=== PATIENT | male | born 1955 | race Caucasian/White ===

== ENCOUNTER 2021-11-17 09:06 | Outpatient (CLI) | payer MEDICARE, BC, SELFPAY ==
--- OUTSIDE RECORDS SUMMARY | 2021-11-17 08:08 | XMS_ITS | Clinical Summary ---
:1955 Author Organization [facility] Address [address] [place] [address] Care Team Providers Name Role Phone Unavailable Primary Care Provider Unavailable Source Comments You are receiving this document as you are listed as the primary care provider,follow-up provider, or the patient has been referred to you for consultation.This is in compliance with the Medicare and Medicaid EHR Incentive Program,which states Providers who transition their patient to another setting of careor provider of care or refers their patient to another provider of care shouldprovide summarycare record for each transition of care or referral. [facility] Allergies Active Allergy Reactions Severity Noted Date Comments Eggs Or Egg-Derived Products Gastrointestinal 03/19/19 20 Latex 03/19/2019 Milk-Related Compounds Gastrointestinal 03/19/2019 Medications Medication Sig Dispensed Refills Start Date End Date Status Probiotic CAPS 0 03/19/2019 Acti ve Magnesium Citrate 200 MG 0 03/19/2019 Active TABS metFORMIN ER (GLUMETZA) Take 1,500 mg 360 Tablet 3 03/19/2019 Active 500 MG modified 24 hour by mouth daily release tablet with breakfast. niacin 500 MG tablet Take 1 Tablet 0 03/19/2019 Active by mouth daily with breakfast. Coenzyme Q10 100 MG 0 03/19/2019 Active losartan (COZAAR) 50 MG Take 100 mg by 90 Tablet 3 03/19/2019 Active tablet mouth daily. clonazePAM (KLONOPIN) 1 Take 1 Tablet 0 03/19/2019 Active MG tablet by mouth two times daily as needed for Anxiety. levothyroxine Take 1 Tablet 90 Tablet 3 03/19/2019 A ctive (SYNTHROID) 150 MCG by mouth daily. tablet cholecalciferol (VITAMIN Taking 2,000 100 Tablet 3 03/19/2019 Active D3) 25 MCG (1000 UT) Unit OR DAILY, tablet CAP cyanocobalamin (VITAMIN Take 1 Tablet 0 03/19/2019 Active B12) 1000 MCG tablet by mouth daily. aspirin 81 MG chewable Take 1 Tablet 100 Tablet 3 03/19/2019 Active tablet by mouth daily. celecoxib (CELEBREX) 200 Take 1 Capsule 60 Capsule 5 0 Active MG capsuleIndications: by mouth two Primary osteoarthritis times daily as involving multiple needed for joints Pain. diclofenac (VOLTAREN) 1 Apply 4 g to 300 g 11 04/14/2019 Active % gelIndications: skin 4 times a Primary osteoarthritis day. involving multiple joints, Chronic bilateral low back pain without sciatica, Chronic pain of both knees, Primary osteoarthritis of both knees Active Problems Problem Noted Date RIYA (obstructive sleep apnea) 04/14/2019 Acquired hypothyroidism 04/14/2019 GERD (gastroesophageal reflux disease) 04/14/2019 HTN (hypertension) 04/14/2019 Social History Tobacco Use Types Packs/Day Years Used Date Smoking Tobacco: Former Smokeless Tobacco: Never Alcohol Use Standard Drinks/Week Comments Not Currently 0 (1 standard drink = 0.6 oz pure alcoho l) Sex Assigned at Date Recorded Not on file Last Filed Vital Signs Vital Sign Reading Time Taken Comments Blood Pressure 145/82 04/14/2019 10:08 AM 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 Pulse 87 04/14/2019 10:08 AM 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 Temperature - - Respiratory Rate - - Oxygen Saturation - - Inhaled Oxygen Concentration - - Weight 128.2 kg (282 lb 9.6 oz) 04/14/2019 10:08 AM 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 Height 180.3 cm (5' 11) 04/14/2019 10:08 AM 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 Body Mass Index 39.41 04/14/2019 10:08 AM 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 Plan of Treatment Health Maintenance Due Date Last Done Comments Colon Cancer Screening Plan 1955 Due Hep C Screening (Preventive 1955 Services) Medicare Annual Wellness 1955 Visit COVID-19 Vaccine (#1) 1955 Cholesterol 02/05/1988 Zoster/Shingles (1 of 2) 2003 Pneumococcal 65+ Yrs (2 - 10/20/2020 10/21/2019 PCV) Influenza (#1) 2021 12/18/2019, 11/05/2019, 01/17/2011, Additional history exists DTaP/Tdap/Td (2 - Tdap) 06/12/2023 06/11/2013 HepA Aged Out No longer cathy lopez based on patient 's age to complete this topic HepB Aged Out No longer eligib le based on patient 's age to complete this topic Hib Aged Out No longer eligib le based on patient 's age to complete this topic IPV (Polio) Aged Out No longer eligib le based on patient 's age to complete this topic MCV4 Aged Out No longer eligib le based on patient 's age to complete this topic Insurance Payer Benefit Plan / Subscriber ID Effective Dates Phone Addre ss Type Group MEDICARE MEDICARE [id number] 2018-Prese [phone] [facility] BCBS BCBS BCBS [place] [id number] 2019-Presen [phone] [address] [address] Medicare BLUE [address] [place] [address] (Home) [place] [address]
[2021-11-17 10:04] LABS: Chloride* 103 mmol/L (96-114)
[2021-11-17 10:05] LABS: Albumin* 4.8 g/dL (3.3-5.0); Sodium* 138 mmol/L (135-149)
[2021-11-17 10:06] LABS: Potassium* 4.8 mmol/L (3.6-5.1)
[2021-11-17 10:08] LABS: Alanine Aminotransferase* 27 U/L (4-50); Alkaline Phosphatase* 80 U/L (40-150); Aspartate Amino Transferase* 30 U/L (12-35); Bilirubin Total* 0.4 mg/dL (0.1-1.5); Blood Urea Nitrogen* 18 mg/dL (7-30); Carbon Dioxide* 26 mmol/L (20-32); Cholesterol* 190 mg/dL (90-199); Creatinine* 0.8 mg/dL (0.5-1.5); Estimated Glomerular Filt Rate 96 ml/min; Glucose* 107 mg/dL (60-115); Total Protein* 7.6 g/dL (6.0-8.3); Triglycerides* 92 mg/dL (40-149)
[2021-11-17 10:09] LABS: Calcium* 9.5 mg/dL (8.4-10.6); HDL Cholesterol* 55 mg/dL (>=40); LDL Cholesterol Calculated 117 mg/dL (<100)
[2021-11-18 10:51] LABS: PSA Screen* 2.74 ng/mL (0.10-4.00)
[2021-11-18 10:54] LABS: Ferritin* 58.2 ng/mL (17.9-464.0)
== END 2021-11-17 09:07 | disposition home or self-care (01) ==
PROVIDERS: PCP Family Medicine; Visit Provider Family Medicine
DX: Z00.00 Encounter for general adult medical examination without abnormal findings (principal); E78.5 Hyperlipidemia, unspecified; I10 Essential (primary) hypertension; E03.9 Hypothyroidism, unspecified; R53.83 Other fatigue; E66.9 Obesity, unspecified; Z13.0 Encounter for screening for diseases of the blood and blood-forming organs and certain disorders involving the immune mechanism; G25.81 Restless legs syndrome; Z12.5 Encounter for screening for malignant neoplasm of prostate
CPT/HCPCS: 80053; 80061; 82728; 84153

== ENCOUNTER 2022-10-02 09:28 | Outpatient (CLI) | payer MEDICARE, BC, SELFPAY | END 2022-10-02 09:29 | disposition home or self-care (01) | LOC: NFLDREF 10-04 16:38 | PROVIDERS: PCP Family Medicine; Visit Provider Family Medicine | DX: E03.9 Hypothyroidism, unspecified (principal); I10 Essential (primary) hypertension | CPT/HCPCS: 80053; 84443 ==

== ENCOUNTER 2022-11-22 10:55 | Outpatient (CLI) | payer MEDICARE, BC, SELFPAY | END 2022-11-22 10:56 | disposition home or self-care (01) | LOC: NFLDREF 11-24 11:59 | PROVIDERS: PCP Family Medicine; Referring Provider Family Medicine; Visit Provider Otolaryngology | DX: J32.9 Chronic sinusitis, unspecified (principal); Z12.5 Encounter for screening for malignant neoplasm of prostate; G25.81 Restless legs syndrome; E66.01 Morbid (severe) obesity due to excess calories; I10 Essential (primary) hypertension; R53.83 Other fatigue; E78.5 Hyperlipidemia, unspecified; E03.9 Hypothyroidism, unspecified | CPT/HCPCS: 80053; 80061; 82728; 84153 ==

== ENCOUNTER 2022-12-13 09:49 | Outpatient (CLI) | payer MEDICARE, BC, SELFPAY ==
--- NOTE | 2022-12-13 10:00 | CRLHL7_ITS ---
For Patients: As a result of the Cures Act, medical imaging exams and procedure reports are released immediately into your electronic medical record. You may view this report before your referring provider. If you have questions, please contact your health care provider. Indication: Chronic sinusitis Technique: Performed without IV contrast Comparison: None available Findings: Frontal sinuses: Mild mucosal thickening within the frontal sinuses bilaterally particularly inferiorly. Ethmoid sinuses: Mild mucosal thickening within the ethmoid sinuses bilaterally. Maxillary sinuses: The left maxillary sinus is clear. Chronic inflammatory changes within the inferior right maxillary sinus with mucosal thickening and heterotopic calcification, likely related to implanted denture screw. The sinus drainage pathways are clear bilaterally. Sphenoid sinuses: Mucosal thickening is present within both maxillary sinuses along with anterior mucus within the right sphenoid sinus. The sphenoethmoidal recesses are partially obstructed. Nasal Cavity: Rightward curvature of the nasal septum is present with an associated right-sided nasal septal spur. Nodularity of the turbinate mucosa. Marleny bullosa right middle turbinate. Paradoxical turn of the right middle turbinate noted as well. Incidental hyperostosis frontalis interna noted. Middle ear cavities and mastoid air cells are clear. Mild cerumen present within both external auditory canals. Normal alignment at the temporomandibular joints bilaterally. No intracranial hydrocephalus. Impression: 1. Mild bilateral sinus disease with relative sparing of the left maxillary sinus. Partial obstruction of the sphenoid ethmoidal recesses bilaterally. 2. Chronic inflammatory change involving the inferior right maxillary sinus, likely associated with implanted dentures screw. 3. Rightward curvature of the nasal septum noted with right-sided nasal septal spur. Please note that all CT scans at this facility use dose modulation, iterative reconstruction, and/or weight-based dosing when appropriate to reduce radiation dose to as low as reasonably achievable. Dictated by Anthony Pineda MD @ 12/14/2022 8:51:11 AM (Electronically Signed)
== END 2022-12-13 09:50 | disposition home or self-care (01) ==
LOC: CT 09:49
PROVIDERS: PCP Family Medicine; Visit Provider Otolaryngology
DX: J32.9 Chronic sinusitis, unspecified (principal); J32.0 Chronic maxillary sinusitis; J34.2 Deviated nasal septum
CPT/HCPCS: 70486

== ENCOUNTER 2023-02-12 11:28 | Outpatient (CLI) | payer MEDICARE, BC, SELFPAY | END 2023-02-12 11:29 | disposition home or self-care (01) | LOC: NFLDREF 02-13 12:23 | PROVIDERS: PCP Family Medicine; Referring Provider Family Medicine; Visit Provider Family Medicine | DX: E78.5 Hyperlipidemia, unspecified (principal) | CPT/HCPCS: 80061 ==

== ENCOUNTER 2023-02-23 09:49 | Day surgery (SDC) | payer MEDICARE, BC, SELFPAY ==
[2023-02-23] VITALS (16 sets, daily range): BP systolic 156–183; BP diastolic 75–105; PULSE 71–98; RESP 16–20; TEMP 36.1–37.3; O2SAT 71–98; BMI 42.9
[2023-02-23] MEDS: LACTATED RINGERS 1000 ML 1,000 ML 35 ML IV (10:32)
[2023-02-23] MEDS: OXYMETAZOLINE 0.05% NASAL SPRAY 2 SPRAY NOSTRIL-B (10:39)
[2023-02-23] MEDS: COCAINE HCL 4 % 4 ML SOLUTION NOSTRIL-B (12:03)
[2023-02-23] MEDS: BUPIVACAINE 0.5%/EPINEPHRINE 0.9 MG (30.9 ML) INJECTION (12:06)
[2023-02-23] MEDS: AYR SALINE NASAL GEL 1 APPLIC NOSTRIL-B (12:13)
--- NOTE | 2023-02-23 12:30 | W.PM.ENTPROC ---
Procedure Note Date of procedure: 02/23/23 Procedure: Preoperative diagnosis chronic bilateral ethmoid sinusitis, nasal obstruction, deviated septum, inferior turbinate hypertrophy bilateral, right middle turbinate kena bullosa. Postoperative diagnosis same Procedure nasal septoplasty, submucous partial resection inferior turbinates, endoscopic partial resection right middle turbinate kena bullosa, endoscopic bilateral complete ethmoidectomies Under general trach anesthesia patient was prepped draped usual fashion the nose injected and decongested. A right hemitransfixion incision was made left anterior posterior tunnels were created. A right anterior tunnel was also created. The posterior deflected portions of septal bone resected in a single piece was trimmed and returned to intraseptal space. The anterior septum was moved to midline. The hemitransfixion was closed with 2 4-0 chromic sutures. A stab incision was made in the anterior of the right inferior turbinate a tunnel created with a Desiree dissector. The kena bone was outfractured a conservative anterior submucous resection was performed. The Coblation was used to cauterize intramurally more posteriorly. This was repeated on the left side in identical fashion. The meter procedure was done with both image guidance and utilization of 0 degree endoscopy. The right middle turbinate kena was incised over the hollow portion of the bone. The bone was then infection the turbinate crushed with the [place] forceps. The ethmoid bulla was taken down and dissection carried out in an anterior to posterior direction removing a moderate amount of polypoid tissue. The left middle turbinate was medialized and the ethmoid bulla taken down and dissection carried out anterior to posterior direction again removing a moderate amount of polypoid material. All specimens were sent to pathology. Silastic stents were secured on either side the septum with a 3-0 nylon. A dissolvable gel pack was placed in the anterior ethmoid on each side with Merocel pack beneath that. Nasal airways were then trimmed inset and placed in the floor of the nose. The patient procedure well was taken recovery in satisfactory condition blood loss during procedure was less than 50 mL. Surgeon: Vinh Rodriguez MD
--- NOTE | 2023-02-23 12:48 | W.ANESCHARGE ---
Anesthesia Charges Start Date/Time Anesthesia Start Date: 02/23/23 Anesthesia Start Time: 11:40 Stop Date/Time Anesthesia Stop Date: 02/23/23 Anesthesia Stop Time: 12:43 Summary Extremes of Age - Over 70 or under 1: MDA
[2023-02-23] MEDS: HYDROmorphone 0.5 mg/0.5 ml inj IVP (12:50)
[2023-02-23] MEDS: fentaNYL 100 MCG/2 ML inj 50 MCG IVP (12:59)
--- NOTE | 2023-02-23 13:11 | W.ANESCHARGE ---
Anesthesia Charges Start Date/Time Anesthesia Start Date: 02/23/23 Anesthesia Start Time: 11:40 Stop Date/Time Anesthesia Stop Date: 02/23/23 Anesthesia Stop Time: 12:43
[2023-02-23] MEDS: AMLODIPINE 10 MG TABLET PO (14:12)
[2023-02-23] MEDS: ACETAMINOPHEN 325 MG TABLET PO ×2 (14:12→19:31)
[2023-02-23] MEDS: OXYCODONE 5 MG TABLET PO ×4 (14:13→23:55)
[2023-02-23] MEDS: LOSARTAN POTASSIUM 50 MG TABLET 100 MG PO (14:30)
--- NOTE | 2023-02-23 15:27 | PC.NURSE ---
patient up to floor at 1320. alert and oriented x4. minimal drainage on gauze. changed x1. Patient able to use saline nasal spray Q hr per O'Alexander independently. Ice pack to forehead. at bedside. PRN oxy and tylenol administered w/relief. Patient up to BR and voided, fluids are saline locked.
--- NOTE | 2023-02-23 15:29 | P.IMCN_ITS ---
Date of Consult Patient: [facility] Patient Consult date: 02/23/23 Requesting Physician: Other Primary Care Provider: Patricia Moffett MD Consult Narrative Reason for consult: Management of hypertension, sleep apnea and other medical problems Narrative: Eveline Shrestha is a 68 year old male seen in consultation for management of medical problems following surgery for chronic sinusitis and deviated nasal septum. Patient currently reports some nasal pain but otherwise doing well postoperatively. Reports no trouble breathing, no chest pain or other pain, nausea or vomiting. Intraoperatively patient had very high blood pressure. He did not take his normal blood pressure medicine today preoperatively. He reports his blood pressure at home is normally well controlled with systolics in the 130s. Review of Systems Narrative: He reports he has had chronic headaches which are due to a combination of migraine headaches, sinus headaches, TMJ pain. He does not regularly take pain medicine at home except for Pamprin. He also has restless legs for which he takes clonazepam at bedtime. He reports his sleep is very poor due to combination of factors. He reports he is up to void at night multiple times. Has never had an evaluation for this. He has sleep apnea for which he uses CPAP but cannot currently use CPAP after his nasal surgery. [facility] Medical History Hypertension ?I10 - Essential (primary) hypertension (ICD-10) Agatston coronary artery calcium score greater than 400 (2017) ?R93.1 - Abnormal findings on diagnostic imaging of heart and coronary circulation (ICD-10) Obesity with body mass index (BMI) of 30.0 to 39.9 ?E66.9 - Obesity, unspecified (ICD-10) Morbid obesity with BMI of 40.0-44.9, adult ?E66.01 - Morbid (severe) obesity due to excess calories (ICD-10) ?Z68.41 - Body mass index [BMI] 40.0-44.9, adult (ICD-10) Obstructive sleep apnea treated with continuous positive airway pressure (CPAP) ?G47.33 - Obstructive sleep apnea (adult) (pediatric) (ICD-10) ?Z99.89 - Dependence on other enabling machines and devices (ICD-10) Tubular adenoma (09/27/17) ?D36.9 - Benign neoplasm, unspecified site (ICD-10) History of renal calculi (09/2019) ?Z87.442 - Personal history of urinary calculi (ICD-10) Enlarged prostate ?N40.0 - Benign prostatic hyperplasia without lower urinary tract symptoms (ICD-10) Diverticulitis ?K57.92 - Diverticulitis of intestine, part unspecified, without perforation or abscess without bleeding (ICD-10) Surgical History History of oral surgery (1972) ?Z98.890 - Other specified postprocedural states (ICD-10) History of lithotripsy (09/15/19) ?Z98.890 - Other specified postprocedural states (ICD-10) History of esophagogastroduodenoscopy (EGD) (03/2020) ?Z98.890 - Other specified postprocedural states (ICD-10) History of endoscopy ?Z98.890 - Other specified postprocedural states (ICD-10) History of colonoscopy (09/27/17) ?Z98.890 - Other specified postprocedural states (ICD-10) Family History Mother Bladder cancer, Onset Age: 84 Rheumatoid arthritis Osteoarthritis Brother Heart disease Father Heart disease Other Obesity Social History (Updated 02/23/23 @ 15:39 by Sonido Gama MD) 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 social drinker 1/week walking 3 times 3 Miles on treadmill Occasionally uses CBD gummies which he finds beneficial for pain What is your current living situation?: I presently have a place to live Problems where you live: no known problems In the past 12 months, utilities in danger of being shut off: no In past 12 months, lack of transportation kept you from medical appts, meetings, work, or getting things needed for daily living: no In the past 12 mos, have been you worried that your food would run out before you had money to buy more?: never true In the past 12 mos, the food you bought just didn't last and you didn't have money to buy more?: never true Smoking Status: Former smoker How often does anyone, including family, friends and others, physically hurt you : never How often does anyone, including family, friends and others, insult or talk down to you: never How often does anyone, including family, friends and others, threaten you with harm: never How often does anyone, including family, friends and others, scream or curse at you: never Little interest or pleasure in doing things: not at all Feeling down, depressed, or hopeless: not at all Meds Home Medications and Allergies Home Medications Medication Instructions Recorded Confirmed Type fluticasone propionate 50 1 spray intranasal BID PRN 10/06/22 02/14/23 History mcg/actuation nasal spray,suspension (Flonase Allergy Relief) Allergies Allergy/AdvReac Type Severity Reaction Status Date / Time Eggs or Egg-derived Products Allergy Intermediate Gastrointestinal Uncoded 02/14/23 08:56 Upset Milk derivatives Allergy Intermediate Gastrointestinal Uncoded 02/14/23 08:56 Upset Latex Allergy Mild rash Uncoded 02/14/23 08:56 Exam Narrative: Exam Narrative: He is alert sitting up in a chair and appears in no distress. Nose is bandaged with small amount of blood on the dressing. No marked swelling, erythema or bruising. Oropharynx normal. Neck is supple without mass or adenopathy. Respirations are clear to auscultation. Cardiovascular: S1, S2, 1/6 systolic murmur. No gallop or rub. Extremities without significant edema. Const: Vital Signs, click to edit/add: Vital Signs - 24 hr 02/23/23 10:14 02/23/23 12:38 02/23/23 12:45 Temperature 99.1 F 97.0 F L Pulse Rate 81 80 75 Pulse Rate [Right Pulse Oximeter] Respiratory Rate 16 18 18 Blood Pressure 171/86 H 183/103 H 177/86 H Blood Pressure [Le ft Arm] Pulse Oximetry 95 92 74 L Oxygen Delivery Me thod Room Air Room Air Room Air 02/23/23 12:51 02/23/23 12:55 02/23/23 13:00 Temperature 97.0 F L Pulse Rate 75 73 71 Pulse Rate [Right Pulse Oximeter] Respiratory Rate 20 20 18 Blood Pressure 156/90 H 169/85 H 170/87 H Blood Pressure [Le ft Arm] Pulse Oximetry 74 L 71 L 71 L Oxygen Delivery Me thod Room Air Room Air Room Air 02/23/23 13:06 02/23/23 13:11 02/23/23 13:14 Temperature Pulse Rate 74 73 72 Pulse Rate [Right Pulse Oximeter] Respiratory Rate 18 20 18 Blood Pressure 164/83 H 163/87 H 167/85 H Blood Pressure [Le ft Arm] Pulse Oximetry 96 96 98 Oxygen Delivery Me thod Room Air Room Air Room Air 02/23/23 13:30 02/23/23 13:45 02/23/23 14:00 Temperature 97.0 F L 97.4 F L 97.4 F L Pulse Rate Pulse Rate [Right Pulse Oximeter] 81 76 87 Respiratory Rate 18 18 18 Blood Pressure Blood Pressure [Le ft Arm] 170/81 H 172/84 H 181/88 H Pulse Oximetry 94 95 96 Oxygen Delivery Me thod Room Air Room Air Room Air 02/23/23 14:15 02/23/23 14:56 Temperature 97.6 F 97.0 F L Pulse Rate 78 Pulse Rate [Right Pulse Oximeter] 86 Respiratory Rate 18 18 Blood Pressure Blood Pressure [Le ft Arm] 177/83 H 176/105 H Pulse Oximetry 97 Oxygen Delivery Me thod Room Air Room Air Documenting provider has reviewed patient's vital signs: yes Assessment and Plan Assessment and plan (1) Hypertension: Problem comment: Elevated blood pressure during surgery likely due to a combination of surgical affects and missing his blood pressure medicine this morning. Resume home medicines. Likely blood pressure will return Status: Chronic (2) Chronic sinusitis: Problem comment: Status post nasal surgery Status: Chronic (3) Obstructive sleep apnea treated with continuous positive airway pressure (CPAP): Problem comment: Unable to use CPAP postoperatively due to nasal surgery. Caution with opioids Status: Acute (4) Morbid obesity with BMI of 40.0-44.9, adult: Status: Chronic (5) Hypothyroidism: Problem comment: Resume levothyroxine Status: Chronic Plan Patient is observed in the hospital overnight to assess his vital signs, blood pressure, breathing. Anticipate discharge to home tomorrow if tolerating his postoperative state with reasonable vital signs, adequate respiration and pain control Total time spent today is 40 minutes, 25 minutes in coordination of care and discussing with patient and other providers management of postoperative problems
[2023-02-23] MEDS: IBUPROFEN 200 MG TABLET PO ×2 (17:33→22:58)
--- NOTE | 2023-02-23 19:59 | PC.NURSE ---
Elevated BP- 160s/80s, HR- high 90s. RA. Pain of 3-4- some relief w/ q4h tylenol, ibuprofen, and q2h 5 mg oxy + ice. Using saline spray q1h. Bloody drainage from right nare, quarter size q2h. Tolerating regular diet. Drinking well- 1600 cc fluids in. Voided x5. Up independently in room. PIV in left FA- SL'd. Will continue to monitor, follow POC, and keep pt and family updated. Cristela Wesley RN
[2023-02-24] MEDS: clonazePAM 0.5 MG TABLET 1 MG PO (02:30)
[2023-02-24 02:40] VITALS: BP 170/79; PULSE 75; RESP 18; TEMP 36.4; O2SAT 97
[2023-02-24] MEDS: ACETAMINOPHEN 325 MG TABLET PO ×2 (03:15→08:45)
[2023-02-24] MEDS: OXYCODONE 5 MG TABLET PO ×2 (03:16→08:46)
--- NOTE | 2023-02-24 06:21 | PC.NURSE ---
Patient pleasant, alert and cooperative. Independent in room. Given PRN Oxycodone, PRN Tylenol and PRN ibuprofen for nose pain rated 3-4/10. PRN Klonpin given for sleep. No increase in bloody nasal drainage from start of shift. Reports increased bleeding after using nasal spray. Blood pressures have remained elevated between 159/70 to 170/79; all other VS WNL. ?
[2023-02-24 07:30] VITALS: BP 143/67; PULSE 59; RESP 18; TEMP 36.6; O2SAT 98
[2023-02-24] MEDS: LEVOTHYROXINE 75 MCG TABLET 150 MCG PO (08:45)
[2023-02-24] MEDS: LOSARTAN POTASSIUM 50 MG TABLET 100 MG PO (08:45)
[2023-02-24] MEDS: SODIUM CHLORIDE 0.9 % (FLUSH) 10 ML SYRINGE IVF (08:47)
--- NOTE | 2023-02-24 11:17 | PC.NURSE ---
Please see eMar for meds provided. Eval by Dr. Gama who updated & conferred with Dr. Rodriguez via phone. IV discontinued. D/C orders obtained. Pt and Shanita verbalized understanding of d/c diagnosis, new prescriptions, home meds, f/up appt with Dr. Rodriguez and sx to report urgently to physician. Ambulatory d/c to home with personal belongings and as transportation.
--- NOTE | 2023-02-24 11:21 | PC.NURSE ---
Pt had 520 cc in and voided times 3 prior to d/c this am.
--- NOTE | 2023-02-24 11:33 | PM.DS1 ---
DS: Providers Provider Date Seen: 02/24/23 Primary care physician: Patricia Moffett MD Attending Physician on discharge: Vinh Rodriguez MD Date of Discharge: 02/24/23 DS: Diagnosis Discharge Diagnosis (1) Hypertension: Status: Chronic Problem details: Elevated blood pressure during surgery likely due to a combination of surgical affects and missing his blood pressure medicine this morning. Resume home medicines. Continue outpatient home monitoring of blood pressure and follow-up with primary care if blood pressure is elevated (2) Chronic sinusitis: Status: Chronic Problem details: Status post nasal surgery. Doing well with multiple concerns about managing postoperative symptoms (3) Obstructive sleep apnea treated with continuous positive airway pressure (CPAP): Status: Acute Problem details: Postoperative monitoring showed no hypoxia overnight without CPAP. Caution with opioids. Patient will resume full face mask CPAP. (4) Restless legs syndrome: Status: Acute Problem details: gabapentin 100 mg, in addition clonazepam 1 mg. Continue home management. DS: Summary Hospital Course Hospital Course: 68-year-old male with chronic sinus problems admitted to the hospital for sinus surgery. Surgery performed by Dr. Rodriguez without complications. Intraoperatively patient had problems with elevated blood pressure. Postoperatively he has had some issues with pain control but this is been managed effectively with oxycodone. Postoperatively he had his blood pressure medicines resumed and his blood pressure has returned to near normal levels. He did not sleep well the night after surgery due to not having CPAP, restless legs, pain in his sinuses. He has had some mild bleeding coming from his nostrils. He continues to use the saline to irrigate his nasal tubes. Status at Discharge Functional status at discharge: independent ambulation Overall status at discharge: patient is progressing back to baseline Time Spent with Patient Time attestation: Total time spent providing and/or coordinating discharge services: Time spent: Greater than 30 minutes Exam Narrative: Exam Narrative: He is alert and appears in no distress. He has small amount of bright red blood drainage on the dressing over his nostrils. No active bleeding is observed from the anterior nostrils. Oropharynx with very small airway. Neck is supple without mass or adenopathy. Respirations are clear to auscultation. Cardiovascular: S1, S2, regular rate and rhythm. Const: Vital Signs, click to edit/add: Vital Signs - 24 hr 02/23/23 12:38 02/23/23 12:45 02/23/23 12:51 Temperature 97.0 F L Pulse Rate 80 75 75 Pulse Rate [Left A pical] Pulse Rate [Right Pulse Oximeter] Respiratory Rate 18 18 20 Blood Pressure 183/103 H 177/86 H 156/90 H Blood Pressure [Le ft Arm] Pulse Oximetry 92 74 L 74 L Oxygen Delivery Me thod Room Air Room Air Room Air 02/23/23 12:55 02/23/23 13:00 02/23/23 13:06 Temperature 97.0 F L Pulse Rate 73 71 74 Pulse Rate [Left A pical] Pulse Rate [Right Pulse Oximeter] Respiratory Rate 20 18 18 Blood Pressure 169/85 H 170/87 H 164/83 H Blood Pressure [Le ft Arm] Pulse Oximetry 71 L 71 L 96 Oxygen Delivery Me thod Room Air Room Air Room Air 02/23/23 13:11 02/23/23 13:14 02/23/23 13:30 Temperature 97.0 F L Pulse Rate 73 72 Pulse Rate [Left A pical] Pulse Rate [Right Pulse Oximeter] 81 Respiratory Rate 20 18 18 Blood Pressure 163/87 H 167/85 H Blood Pressure [Le ft Arm] 170/81 H Pulse Oximetry 96 98 94 Oxygen Delivery Mo thod Room Air Room Air Room Air 02/23/23 13:45 02/23/23 14:00 02/23/23 14:15 Temperature 97.4 F L 97.4 F L 97.6 F Pulse Rate Pulse Rate [Left A pical] Pulse Rate [Right Pulse Oximeter] 76 87 86 Respiratory Rate 18 18 18 Blood Pressure Blood Pressure [Le ft Arm] 172/84 H 181/88 H 177/83 H Pulse Oximetry 95 96 97 Oxygen Delivery Me thod Room Air Room Air Room Air 02/23/23 14:56 02/23/23 19:00 02/23/23 22:00 Temperature 97.0 F L 97.5 F L 96.9 F L Pulse Rate 78 Pulse Rate [Left A pical] Pulse Rate [Right Pulse Oximeter] 96 98 Respiratory Rate 18 16 20 Blood Pressure Blood Pressure [Le ft Arm] 176/105 H 159/75 H 177/86 H Pulse Oximetry 95 94 Oxygen Delivery Me thod Room Air Room Air Room Air 02/24/23 02:40 02/24/23 07:30 Temperature 97.6 F 97.9 F Pulse Rate Pulse Rate [Left A pical] 59 L Pulse Rate [Right Pulse Oximeter] 75 59 L Respiratory Rate 18 18 Blood Pressure Blood Pressure [Le ft Arm] 170/79 H 143/67 H Pulse Oximetry 97 98 Oxygen Delivery Me thod Room Air Documenting provider has reviewed patient's vital signs: yes Discharge Plan Discharge Disposition: Home, Self-Care Discharging Surgeon: Vinh Rodriguez Follow-Up Appointment: Tuesday 02/27 9:15am [facility] Prescriptions: New cephalexin 250 mg capsule 250 mg PO TID Qty: 18 0RF ondansetron 4 mg tablet,disintegrating 4 mg PO Q8H Qty: 10 0RF oxycodone 5 mg tablet 2.5 mg PO Q4H PRN (Reason: pain) Qty: 30 0RF Continued levothyroxine 150 mcg tablet 150 mcg PO DAILY Qty: 90 4RF fluticasone propionate [Flonase Allergy Relief] 50 mcg/actuation spray,suspension 1 spray intranasal BID PRN Rx Instructions: administer into each nostril amlodipine 10 mg tablet 10 mg PO QDAY Qty: 90 3RF losartan 100 mg tablet 100 mg PO DAILY Qty: 90 4RF clonazepam 1 mg tablet 1 mg PO HS PRN Discharge Diet: Regular Patient Instructions: Cephalexin (By mouth), Oxycodone, Rapid Release (By mouth), Ondansetron (By mouth), Septoplasty (DC), Care Instructions For Nose and Sinus Surgery Patients Forms: Work/School Release Follow-up: Patricia Moffett MD [Primary Care Provider] - Vinh Rodriguez MD [Staff Physician] - 02/27/23 9:15 am Discharge Orders: Discharge Order (Routine); Ordered 02/24/23 Ordered By: Sonido Gama
== END 2023-02-24 10:25 | disposition home or self-care (01) ==
LOC: OR 09:50 → MEDSURG 13:24
PROVIDERS: PCP Family Medicine; Visit Provider Otolaryngology
PROC: (CPT 31231; principal; 2023-02-23 11:15)
DX: J32.2 Chronic ethmoidal sinusitis (principal); J34.2 Deviated nasal septum; J34.3 Hypertrophy of nasal turbinates; J34.89 Other specified disorders of nose and nasal sinuses; I10 Essential (primary) hypertension; G47.33 Obstructive sleep apnea (adult) (pediatric); E66.01 Morbid (severe) obesity due to excess calories; Z68.41 Body mass index [BMI] 40.0-44.9, adult; E03.9 Hypothyroidism, unspecified; G25.81 Restless legs syndrome
CPT/HCPCS: 30520; 30140; 31255; 30999; 00160; 88305; 99100; A9270; J0330; J1100; J1170; J2250; J2405; J2704; J3010; J7120

== ENCOUNTER 2023-11-02 10:15 | Outpatient (RCR) | payer MEDICARE, BC, SELFPAY ==
--- NOTE | 2023-09-20 16:06 | PT.OPEX ---
PT [facility] Outpatient Eval PT [facility] Outpatient Eval Start: 09/20/23 12:00 Freq: Status: Active Protocol: Document 09/20/23 12:32 NLR (Rec: 09/20/23 15:34 NLR [id number]) E-signed By Alejandrina Olivas DPT Physical Therapy Outpatient Evaluation Insurance Information Recert Due Date 12/19/23 Insurance Name Medicare B,Blue Cross/Blue Shield Medical Diagnosis M54.50 LBP Treating Diagnosis M54.50 LBP M62.81 Weakness core Referring MD Vesna Moffett MD Subjective Preferred Name COLTON Subjective Patient reports for PT evaluation with acute on chronic back pain stating he has a weak core and doesn't really exercise so he tends to have tight muscles. He grabbed a bunch of groceries in his right hand about three weeks ago, turned and had a sudden onset of right upper iliac crest pain. His MD gave him Voltaren and Flexeril. Both helped with muscle spasms and pain improved. He wants to have an exercise program to improve his flexibility and core strength. Pain Comments 2-3/10 today, has been up to 6 /10 a few weeks ago. He is in the process of losing weight (40 pounds on Ozempic) and he wants to be able to do an exercise program so he doesn't hurt his back worse. His goal is to ride a bike and to be able to do other activities. He has an elliptical in his basement. He may try [employer] with his [employer] but he states he needs direction to do the right things and not to overdo the wrong things. 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 Lives with his spouse in a house with multi levels, bedroom and bathroom are on main level. Has a bike and enjoys riding it but hasn't much. Precautions Therapy Limitations/Systems Review Not Limited Objective Other/Pertinent Objective HAND DOM: RIGHT ROM: Grossly WFL except lumbar flexion 20, extension neutral. STRENGTH: Grossly WFL except core strength quite poor. POSTURE: R shoulder low and retracted, FHON, L LE ER, mild L high PSIS, L>R pronation FLEXIBILITY: Hypoflexibility noted QL, HS, QDs, HFs, HCs FOOTWEAR: New Balance athletic shoes Assessment Assessment/Impression Patient is a pleasant 68 year old male who recently lost 40 pounds who presents for PT with acute on chronic LBP in the setting of poor core strength and general hypoflexibility. He would benefit from PT for goals as stated to improve core strength and flexibility to minimize recurrence of LBP. Primary Functional Limitations Difficulty participating in regular exercise program due to weakness and hypoflexibility with high risk for continued low back pain. Plan of Care Rehabilitation Potential Good Rehabilitation Potential Comments Patient is otherwise healthy and motivated to improve in order to return to prior level of function. Physical Therapy Goals 1. Patient will be independent with home exercise program as instructed, modified and progressed by physical therapist in order to be independently and actively participating in their rehabilitation and return to prior level of function. Goal to be achieved by 12/19/2023. 2. Patient will demonstrate improved tolerance for movement with decreased pain and joint restriction to allow him to return to pre-injury fitness activities of choice such as biking, walking without significant increase in pain greater than 2/10 demonstrating improvement in form and/or mechanics to allow patient to return to pre- onset level of function. Goal to be achieved by 12/19/2023. Coordination/Communication With Referral Source Treatment Plan/Direct Interventions Gait Training,Manual Therapy, Neuromuscular Re-ed, Therapeutic Exercises Frequency/Duration 1X every other week for up to 10 visits Patient Will Be Discharged From Therapy Completion of LTG(s),Skills Plateau,Independent w/HEP, Independently Progressing Evaluation Billing Untimed Code Treatment Minutes 20 PT Eval No Charge No Complexity Low Certification Information Provider Signature Required Yes Provider Signature Shows Agreement With POC & Medical Necessity Physician NPI Number Write NPI# Here Physician Comment/Change : Physician Signature & Date Requested Please Sign/Date Here
== END 2024-01-03 15:32 | disposition home or self-care (01) ==
PROVIDERS: PCP Family Medicine; Visit Provider Family Medicine
DX: M54.50 Low back pain, unspecified (principal); M47.816 Spondylosis without myelopathy or radiculopathy, lumbar region; M62.81 Muscle weakness (generalized); Z51.89 Encounter for other specified aftercare
CPT/HCPCS: 97110; 97112; 97161; 97535

== ENCOUNTER 2023-12-19 11:04 | Outpatient (CLI) | payer MEDICARE, BC, SELFPAY ==
--- OUTSIDE RECORDS SUMMARY | 2023-12-19 14:59 | XMS_ITS | Clinical Summary ---
Author Organization [facility] Address [address] [place] [id number] Care Team Providers Care Wet Cleaner Machine Name Role Phone Elsewhere, Pcp Primary Care Provider Unavailabl e Source Comments Patient records contain information from all sites at [facility]. For routine questions regarding patient records, call [phone] during business hours, M-F 8:00 AM - 5:00 PM Central Time. Record requests for emergency care only can be directed to [phone] at any time.[facility] Allergies No known active allergies Medications clonazePAM (for_KlonoPIN) 0.5 mg tablet Take 2 tablets (1 mg total) by mouth at bedtime. 60 tablet 2 8 Active levothyroxine (for_SYNTHROID, LEVOTHROID) 150 mcg tablet 2 8 Active nystatin (for_MYCOSTATIN ) 100,000 unit/gram cream 0 8 Active chlorthalidone (for_HYGROTEN) 25 mg tablet Take 0.5 tablets by mouth daily. 7 Active fluticasone (FLONASE) 50 mcg/actuation nasal spray Administer 2 sprays into each nostril 2 (two) times a day as needed for rhinitis or allergies. 16 g 6 8 Active azelastine (ASTELIN) 137 mcg/spray (0.1 %) nasal spray INSTILL ONE SPRAY INTO EACH NOSTRIL TWO TIMES A DAY NEEDED FOR RHINITIS OR ALLERGIES 30 mL 6 9 Active Encounters Date Type Department Care Team Description 09/27/2023 6:29 AM CDT - 09/27/2023 6:43 AM CDT Emergency [facility] [address] [place] [phone] Pa Chandler, FREDRICK, C.N.P., M.S.N. Pain Back (Primary Dx) Discharge Disposition: Home or Self Care from Last 3 Months Immunizations Name Administration Dates Next Due Influenza, Unspecified 12/20/2010 Tdap 06/11/2013 Family History Medical History Relation Name Comments Heart disease Brother Obesity Brother Coronary artery disease Father Bladder cancer Mother Relation Name Status Comments Brother Father Mother Social History Tobacco Use Types Packs/Day Years Used Date Smoking Tobacco: Former Smokeless Tobacco: Never Tobacco Cessation:Counseling Given: Not Answered Alcohol Use Standard Drinks/Week Comments Never 0 (1 standard drink = 0.6 oz pur e alcohol) Nutrition Answer Date Recorded Nutrition: EVOO Fat Source Unknown 05/06 Nutrition: Servings of Fruits/Vegetables per Day Not on file 05/06/2020 Dental Answer Date Recorded Dental: Regular Dentist Unknown 09/27/19 Sex and Gender Information Value Date Recorded Sex Assigned at Not on file 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 Gender Identity Not on file Sexual Orientation Not on file Last Filed Vital Signs Vital Sign Reading Time Taken Comments Blood Pressure 180/89 09/27/2023 6:19 AM CDT Pulse 79 09/27/2023 6:19 AM CDT Temperature 36.6 ??C (97.9 ??F) 09/27/2023 6:19 AM CD T Respiratory Rate 18 09/27/2023 6:19 AM CDT Oxygen Saturation 95% 09/27/2023 6:19 AM CDT Inhaled Oxygen Concentration - - Weight 126 kg (278 lb 14.1 oz) 09/27/2023 6:20 A M CDT Height 182 cm (5' 11.65) 08/21/2016 7:32 AM CDT Body Mass Index 38.19 08/21/2016 7:32 AM CDT Plan of Treatment Health Maintenance Due Date Last Done Comments CT Colonography 1955 Cologuard 1955 FIT 1955 Hepatitis C Screening 1955 Zoster Vaccines (1 of 2) 2003 Colonoscopy 07/09/2017 07/10/2007 Colorectal Cancer Screening 07/09/2017 Thyroid Stimulating Hormone (TSH) test for thyroid function 08/21/2017 08/21/2016, 07/08/2015, 05/26/2014, Additional history exists Fasting Glucose for Diabetes Screening 12/20/2018 12/21/2015, 07/08/2015, 06/11/2013 Depression Screening (Annual PHQ-2) 03/05/2023 Fall Risk Screen (Annual) 03/05/2023 DTaP,Tdap,and Td Vaccines (2 - Td or Tdap) 06/12/2023 06/11/2013 COVID-19 Vaccine (6 - 2023-2 5 season) 2023 06/09/2021, 03/05/2021, 12/02/2020, Additional history exists Influenza Vaccine (#1) 2023 , 12/20/2020, 12/18/2019, Additional history exists Abdominal Aortic Aneurysm (A AA) Screen Completed 06/28/2015 Pneumococcal vaccine (65+ years) Completed 11/02/19 21, 10/21/2019 Procedures Procedure Name Priority Date/Time Associated Diagnosis Comments THYROID-STIMULATING HORMONE-SENSITIVE (S-TSH) Routine 08/21/2016 7:37 AM CDT COMPREHENSIVE METABOLIC PANEL, S/P Routine 12/21/2015 1:[address] ABDOMEN PELVIS WITHOUT IV CONTRAST Routine 06/28/2015 10:39 AM CDT from Last 3 Months or Most Recently Relevant to Health Maintenance Results * (ABNORMAL) S-TSH (Thyroid-Stimulating Hormone - Sensitive) (08/21/2016 7:37 AM CDT) TSH (Thyrotropin) 8.23(H) 0.27 - 4.20 MIUL POWERCHART Comment: Biotin has been identified by the sawyer helper as a potential interfering substance. Higher concentrations of biotin may be found in multivitamins, hair/nail supplements, and workout supplements. If the result does not match clinical observations, repeat testing after patient refrains from the use of supplements for at least 12 hours. Blood 08/21/2016 7:37 AM CDT Cristela Spears M.D. LAB BLOOD ADD-ON Edited Result - Final POWERCHART * CMP (Comprehensive Metabolic Panel) (12/21/2015 1:35 PM CDT) Alanine Amniotransferase, LD 24 7 - 55 UNITL POWERCHART Albumin, S 4.4 3.5 - 5.0 GDL POWERCHART Alkaline Phosphatase, S 73 45 - 115 UL POWERCHART Aspartate Aminotransferase (AST), S 24 8 - 48 UNITL POWERCHART Sodium, S 138.9 135.0 - 145.0 MMOLL POWERCHART Potassium, S 4.1 3.6 - 4.8 MMOLL POWERCHART Chloride, S 105 98 - 107 MMOLL POWERCHART CO2 Total 24.2 23.0 - 29.0 MMOLL POWERCHART BUN (Blood Urea Nitrogen), S 8 7 - 18 MGDL POWERCHART Creatinine 0.74 0.60 - 1.30 MGDL POWERCHART Calcium, Total, S 9.3 8.8 - 10.2 MGDL POWERCHART Anion Gap 10 10 - 20 MMOLL POWERCHART HXeGFR (MDRD) >60 >=60 [id number] 2 POWERCHART eGFR Black/ >60 >=60 [id number] 2 POWERCHART Bilirubin, Total, S 0.2 0.1 - 1.0 MGDL POWERCHART Total Protein, S 7.3 6.3 - 7.9 GDL POWERCHART Glucose 89 70 - 139 MGDL POWERCHART Blood 12/21/2015 1:35 PM CDT us Cristela Spears M.D. LAB BLOOD ADD-ON Final Result POWERCHART * CT Abdomen Pelvis without IV Contrast (06/28/2015 10:39 AM CDT) Anatomical Region Laterality Modality Abdomen, Pelvis N/A Computed Tomogra phy 06/28/2015 10:3 9 AM CDT Impressions 06/28/2015 11:14 AM CDT 1. Nonobstructing right renal calculus. 2. Marily mesentery is nonspecific and the differential includes multiple entities of varying clinical significance. Clinical correlation is recommended. FINDINGS: ??Nonobstructing stone in a right mid kidney calyx measuring 7 mm. No additional urinary calculi. Ureters are not dilated. No perinephric inflammatory change. Mild focal stranding and thickening in the root of the mesentery with multiple small mesenteric lymph nodes consistent with marily mesentery sign. Tiny calcification in the inferior liver may be a granuloma. Calcified splenic granulomata. Sigmoid diverticula. No evidence of diverticulosis. Prostatic calcifications. Calcified atherosclerosis. Degenerative changes thoracolumbar spine in both hips. Multilevel degenerative disc disease. Electronically signed by: ?? Jemima Lopes MD [id number] 28-Jun-2015 11:14 Narrative 06/28/2015 11:14 AM CDT 28-Jun-2015 10:39:00 ??Exam: CT ABDOMEN wo & PELVIS wo Indications: Persistent right flank pain and hematuria. ORIGINAL REPORT - 28-Jun-2015 11:14:00 EXAM: ??CT scan of the Abdomen and Pelvis without IV contrast COMPARISON: ??None Procedure Note Jemima Lopes M.D. - 05/31/2017 28-Jun-2015 10:39:00 Exam: CT ABDOMEN wo & PELVIS wo Indications: Persistent right flank pain and hematuria. ORIGINAL REPORT - 28-Jun-2015 11:14:00 EXAM: CT scan of the Abdomen and Pelvis without IV contrast COMPARISON: None IMPRESSION: 1. Nonobstructing right renal calculus. 2. Marily mesentery is nonspecific and the differential includes multipleentities of varying clinical significance. Clinical correlation isrecommended. FINDINGS: Nonobstructing stone in a right mid kidney calyx measuring 7mm. No additional urinary calculi. Ureters are not dilated. No perinephricinflammatory change. Mild focal stranding and thickening in the root of the mesentery withmultiple small mesenteric lymph nodes consistent with marily mesenterysign. Tiny calcification in the inferior liver may be a granuloma.Calcified splenic granulomata. Sigmoid diverticula. No evidence ofdiverticulosis. Prostatic calcifications. Calcified atherosclerosis.Degenerative changes thoracolumbar spine in both hips. Multileveldegenerative disc disease. Electronically signed by: Jemima Lopes MD [id number] 28-Jun-2015 11:14 Sonido Garcia M[address]D. IMG CT PROCEDURES Final Result from Last 3 Months or Most Recently Relevant to Health Maintenance Insurance [facility] MEDICARE Care Teams Wet Cleaner Machine Relationship Specialty Start Date End Date Elsewhere, Pcp PCP - General Internal Medicine 10/01/19
--- OUTSIDE RECORDS SUMMARY | 2023-12-19 15:00 | XMS_ITS | Encounter Summary ---
Author Organization [facility] Address [address] [place] [id number] Care Team Providers Care Cigar Making Supervisor Name Role Phone Elsewhere, Pcp Primary Care Provider Unavailabl e Reason for Visit * Reason Comments Back Pain Patient has a histor y of sciatica. About a month and a half ago patient was working around the house and had back pain which was handled with IBU and flexeril and PT which, did provide relief. The last two days, the patient has been doing a lot of work around the house and last night the back pain flared up again. Patient took IBU and flexeril, tried ice and heat without relief. Encounter Details Date Type Department Care Team (Late st Contact Info) Description 09/27/2023 6:29 AM CDT - 09/27/2023 6:43 AM CDT Emergency [facility] [address] [place] [phone] Pa Chandler, FREDRICK, C.N.P., M.S.N. 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 - 09/27/2023 6:36 AM CDT For pain control: Tylenol 500 mg every 4 hours as needed. Ibuprofen 400 mg every 6 hours as needed. Over the counter lidocaine or salonpas every 12 hours as needed. Make sure you do not stay in bed for a prolonged period of time lifting or strenuous activity for the next 2 weeks. Keep appointment with the physical therapy. If at any point you develop chest pain, shortness breath, abdominal pain, loss of consciousness, nausea vomiting that you can not control, sensation loss of your buttocks, unable to have a bowel movement or urination, leg weakness, or worsening symptoms, return to emergency department. * Attachments The following attachments cannot be sent through Care Everywhere. * Acute Back Pain Adult (Serbian) documented in this encounter Medications at Time of Discharge chlorthalidone (for_HYGROTEN) 25 mg tablet Take 0.5 tablets by mouth daily. 07/06/2016 clonazePAM (for_KlonoPIN) 0.5 mg tablet Take 2 tablets (1 mg total) by mouth at bedtime. 60 tablet 2 06/05/2017 levothyroxine (for_SYNTHROID, LEVOTHROID) 150 mcg tablet 2 05/16/2017 azelastine (ASTELIN) 137 mcg/spray (0.1 %) nasal spray INSTILL ONE SPRAY INTO EACH NOSTRIL TWO TIMES A DAY NEEDED FOR RHINITIS OR ALLERGIES 30 mL 6 08/09/2018 fluticasone (FLONASE) 50 mcg/actuation nasal spray Administer 2 sprays into each nostril 2 (two) times a day as needed for rhinitis or allergies. 16 g 6 08/03/2017 nystatin (for_MYCOSTATIN) 100,000 unit/gram cream 0 04/03/2017 documented as of this encounter ED Notes * Pa Chandler N, FREDRICK, C.N.P., M.S.N. - 09/27/2023 6:30 AM CDT Images from the original note were not included. SUBJECTIVE CHIEF COMPLAINT/REASON FOR VISIT Back Pain (Patient has a history of sciatica. About a month and a half ago patient was working around the house and had back pain which was handled with IBU and flexeril and PT which, did provide relief. The last two days, the patient has been doing a lot of work around the house and last night theback pain flared up again. Patient took IBU and flexeril, tried ice and heat without relief. ) HISTORY OF PRESENT ILLNESS History provided by: Patient REVIEW OF SYSTEMS Constitutional: Negative for chills and fever. HENT: Negative. Eyes: Negative. Respiratory: Negative. Cardiovascular: Negative. Gastrointestinal: Negative. Genitourinary: Negative. Musculoskeletal: Positive for back pain. Psychiatric/Behavioral: Negative. OBJECTIVE Initial Vitals Temperature 09/27/23 0619 36.6 ??C Pulse Rate 09/27/23 0619 79 Heart Rate -- Resp Rate 09/27/23 0619 18 Blood Pressure 09/27/23 0619 (!) 180/89 SpO2 09/27/23 0619 95 % Pain Score 09/27/23 0620 9 PHYSICAL EXAMINATION Constitutional: He appears not lethargic. No distress. HENT: Head: Normocephalic. Pulmonary/Chest: Effort normal. Musculoskeletal: Lumbar back: Normal. Negative right straight leg raise test. Back: Neurological: Alert and oriented to person, place, and time. Skin: Skin is normal color. He is not diaphoretic. Psychiatric: He has a normal mood and affect. ASSESSMENT/PLAN Eveline Shrestha is a 68 y.o. male with a history of hypertension presents to the ED concerning for back pain. Patient reports for the past 5-6 weeks he has been dealing with low back pain. Was seen byhis doctor and prescribed ibuprofen, Flexeril, and physical therapy. He he said medication as well as physical therapy did help. However, yesterday he has been having increase in home chores and heavy lifting and subsequently developed pain to his right lower back radiating to his right hip down tohis right leg. Described the pain as an aching pain. He denies any fever, chills, chest pain, shortness of breath, abdominal pain, sensation loss, urinary or bowel incontinence, or leg weakness. Differential diagnosis includes musculoskeletal cause, ACS, abdominal aortic aneurysm, renal stone,and others considered. On exam, patient is alert and well-appearing with no cardiac symptoms noted. The pain is more alongthe right lower back along the L5-S1 although no midline tenderness noted. More paraspinal tenderness. He exhibits no abdominal tenderness on palpation. No pulsatile mass. This time less suspicion that symptoms could be due to AAA. He exhibits no neuro deficits at this time. Plus two DTR reflex. Ofthe right lower extremity. No saddle anesthesia. No weakness. Do not suspect cauda equina at this time. Plan: Treatment options was discussed with the patient including a conservative approach and supportive management at home versus CT today given his age to rule out any acute process including fracture, renal stone, or AAA. He feels like this is more of his muscle and has declined imaging. He does have PT today. He will follow up with PT. in addition, he is advised on strict return precaution andhe states understanding to this. In addition, prednisone also offer and he declined. Assessment and Plan Care is significantly affected by the following Social Determinants of Health: None. I reviewed the following external records: office records. Final Diagnoses: as of 09/27/23 0638 Pain Back The following tests were considered but ultimately not performed: CT considered. Patient deferred.. Pa Chandler APRN, C.N.P., M.S.N. 09/27/23 0636 Pa Chandler APRN, C.N.P., M.S.N. 09/27/23 0638 documented in this encounter Plan of Treatment Not on file documented as of this encounter Visit Diagnoses Diagnosis Pain Back- Primary documented in this encounter Care Teams Cigar Making Supervisor Relationship Specialty Start Date End Date Elsewhere, Pcp PCP - General Internal Medicine 10/01/19 documented as of this encounter
--- OUTSIDE RECORDS SUMMARY | 2023-12-19 15:00 | XMS_ITS | Clinical Summary ---
Author Organization [facility] Address [place], [place] [address] Care Team Providers Care Budget Accountant Name Role Phone Patricia Moffett MD Primary Care Provider + Allergies No known active allergies Medications Medication Sig Dispensed Refills Start Date End Date Status levothyroxine (SYNTHROID) 137 mcg tablet 2 04/18/2016 Active clonazePAM (KLONOPIN) 0.5 mg tablet 3 04/20/2016 Active Skfld-0-OKI-EPA-Fish Oil (EPA-DHA 720) 290-430-1.4 mg-mg-gram cap Active metFORMIN (GLUCOPHAGE XR) 500 mg Extended-Release tablet 04/28/2019 Active niacin ER (NIASPAN) 500 mg Sustained-Release tablet Bedtime Active losartan (COZAAR) 100 mg tablet Daily Active cyanocobalamin 1,000 mcg tablet Take 1,000 mcg by mouth. 03/19/2019 Active cholecalciferol (VITAMIN D3) 1,000 unit tablet Taking 2,000 Unit OR DAILY, CAP 03/19/2019 Active coenzyme q10 100 mg cap 03/19/2019 Active diclofenac topical (VOLTAREN) 1 % gel 10/31/2019 Active phentermine (ADIPEX-P) 37.5 mg tablet Take 0.5 tablets by mouth once daily before a meal. 0 11/03/2019 Active Active Problems Problem Noted Date Diagnosed Date Coronary artery disease involving [place] coronar y artery 01/12/2017 Overview (01/12/2017): High CAC score Mixed hyperlipidemia 01/12/2017 Arthritis of left knee 07/04/2016 Hypothyroid Restless legs Family History Medical History Relation Name Comments Rheum arthritis Mother Relation Name Status Comments Mother Social History Tobacco Use Types Packs/Day Years Used Date Smoking Tobacco: Former Smokeless Tobacco: Never Tobacco Cessation:Counseling Given: Yes Alcohol Use Standard Drinks/Week Comments Not Currently 0 (1 standard drink = 0.6 oz pur e alcohol) Sex and Gender Information Value Date Recorded Sex Assigned at Not on file Gender Identity Not on file Sexual Orientation Not on file Obstetrics History Last Filed Vital Signs Vital Sign Reading Time Taken Comments Blood Pressure 153/84 11/01/2020 8:49 AM CDT Pulse 68 11/01/2020 8:49 AM CDT Temperature 36.8 ??C (98.3 ??F) 09/22/2019 1 :22 PM CDT Respiratory Rate 18 11/01/2020 8:49 AM CDT Oxygen Saturation 98% 11/01/2020 8:4 9 AM CDT Inhaled Oxygen Concentration - - Weight 123.1 kg (271 lb 6.4 oz) 11/01/2020 8:49 AM CDT Pt weighed with shoes on. Height - - Body Mass Index - - Plan of Treatment Health Maintenance Due Date Last Done Comments Tdap 02/05/1966 Depression screening for age 12+ 1965 BMI (ht and wt on same day) for age 18+ 1971 Hepatitis C screening for age 18-79 1971 Tetanus booster 1973 Colonoscopy through age 75 1998 Lipids for age 45-75 1998 Zoster (shingles) series for age 50+ (1 of 2) 2003 Medicare Wellness for age 65+ 2018 Pneumococcal series for age 65+ (1 of 1 - PCV) 2018 COVID-19 vaccine series (2023- season) 2023 06/01/2020, 05/11/2020 Influenza for age 65+ 11/04/2023 Care Teams Budget Accountant Relationship Specialty Start Date End Date Patricia Moffett MD [address] [place] [address] PCP - General Family Practice 11/01/20
--- OUTSIDE RECORDS SUMMARY | 2023-12-19 15:00 | XMS_ITS ---
Author Organization [facility] Address [address] [place] [address] Care Team Providers Care Shared Services And Outsourcing Manager Name Role Phone Unavailable Unavailable Unavailable Surgery Details Not on file Complications Check Surgery Details section. Procedure Estimated Blood Loss Check Surgery Details section. Procedure Findings Check Surgery Details section. Procedure Specimens Taken Check Surgery Details section.
--- OUTSIDE RECORDS SUMMARY | 2023-12-19 15:00 | XMS_ITS | Clinical Summary ---
Author Organization [facility] Address [address] [place] [address] Care Team Providers Care Block Cutter Name Role Phone Unavailable Primary Care Provider Unavailabl e Source Comments You are receiving this document as you are listed as the primary care provider,follow-up provider, or the patient has been referred to you for consultation.This is in compliance with the Medicare andMedicaid EHR Incentive Program,which states Providers who transition their patient to another setting of careor provider of care or refers their patient to another provider of care shouldprovide summary care record for each transition of care or referral. [employer] Allergies Active Allergy Reactions Criticality Noted Date Comments Egg-Derived Products Gastrointestinal 0 Latex 03/19/2019 Milk-Related Compounds Gastrointestinal 020 Medications Medication Sig Dispensed Refills Start Date End Date Status Probiotic CAPS 03/19/2019 Active Magnesium Citrate 200 MG TABS 03/19/2019 Active metFORMIN ER (GLUMETZA) 500 MG modified 24 hour release tablet Take 1,500 mg by mouth daily with breakfast. 360 Tablet 3 03/19/2019 Active niacin 500 MG tablet Take 1 Tablet by mouth daily with breakfast. 03/19/2019 Active Coenzyme Q10 100 MG 03/19/2019 Activ e losartan (COZAAR) 50 MG tablet Take 100 mg by mouth daily. 90 Tablet 3 03/19/2019 Active clonazePAM (KLONOPIN) 1 MG tablet Take 1 Tablet by mouth two times daily as needed for Anxiety. 03/19/2019 Active levothyroxine (SYNTHROID) 150 MCG tablet Take 1 Tablet by mouth daily. 90 Tablet 3 03/19/2019 Active cholecalciferol (VITAMIN D3) 25 MCG (1000 UT) tablet Taking 2,000 Unit OR DAILY, CAP 100 Tablet 3 03/19/2019 Active cyanocobalamin (VITAMIN B12) 1000 MCG tablet Take 1 Tablet by mouth daily. 03/19/2019 Active aspirin 81 MG chewable tablet Take 1 Tablet by mouth daily. 100 Tablet 3 03/19/2019 Active celecoxib (CELEBREX) 200 MG capsuleIndications:Starr yennifer osteoarthritis involving multiple joints Take 1 Capsule by mouth two times daily as needed for Pain. 60 Capsule 5 04/14/2019 Active diclofenac (VOLTAREN) 1 % gelIndications:Primary osteoarthritis involving multiple joints,Chronic bilateral low back pain without sciatica,Chronic pain of both knees,Primary osteoarthritis of both knees Apply 4 g to skin 4 times a day. 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 Pulse 87 04/14/2019 10:08 AM WIDE ARE[employer] NETWORK ENGINEER Temperature - - Respiratory Rate - - Oxygen Saturation - - Inhaled Oxygen Concentration - - Weight 128.2 kg (282 lb 9.6 oz) 020 10:08 AM [employer]IDE [employer] NETWORK ENGINEER Height 180.3 cm (5' 11) 04/14/2019 10: 08 AM WIDE [employer] NETWORK ENGINEER Body Mass Index 39.41 04/14/2019 10:08 AM WIDE [employer] NETWORK ENGINEER Plan of Treatment Health Maintenance Due Date Last Done Comments Colon Cancer Screening Plan Due 1955 Hep C Screening (Preventive Services) 1955 Medicare Annual Wellness Visit 1955 Cholesterol 02/05/1988 Zoster/Shingles (1 of 2) 2003 Pneumococcal 65+ Yrs (2 - PCV) 10/20/2020 10/21/2019 DTaP/Tdap/Td (2 - Tdap) 06/12/2023 06/11/2013 COVID-19 Vaccine ( - season) 2023 06/01/2020, 05/11/2020 Influenza (#1) 2023 12/18/2019, 04/2019, 01/17/2011, Additional history exists RSV (1 - 1-dose 75+ series) 02/05/2028 HepA Aged Out No longer eligi ble based on patient's age to complete this topic HepB Aged Out No longer eligi ble based on patient's age to complete this topic Hib Aged Out No longer eligi ble based on patient's age to complete this topic IPV (Polio) Aged Out No longer eligi ble based on patient's age to complete this topic RSV Aged Out No longer eligi ble based on patient's age to complete this topic MCV4 Aged Out No longer eligi ble based on patient's age to complete this topic
--- OUTSIDE RECORDS SUMMARY | 2023-12-19 15:00 | XMS_ITS | Data Portability ---
Author Organization [place] [facility] Address [address] [place] [address] [address] [place] [address] Care Team Providers Care Refinery Superintendent Name Role Phone REGAN HARRY JULIANNCHAPARRO Dentist PJ YUSUF Primary Care Provider HOMER SAGASTUME BALL Physical Therapist Assessment Encounter Date Assessment Date Assessment LastModified by Organization Details LastModified Time 12/19/2022 12/19/2022 Today I spent a considerable amount of time discussing the patients past medical and personal history, as well as performing a physical examination all of which is documented in it's entirety in the electronic health record. I reviewed the pathophysiology of the disorder, potential contributing and risk factors as well as treatment options to address their complaints. I discussed the pros and cons of advanced imaging. I did not recommend advanced imaging with MRI. Today no imaging was obtained. I reviewed his rendered panoramic imaging from 11/11/2020, which is not of diagnostic quality. In this radiograph the mandibular condyles were partially visualized and appear flattened and irregular suggestive of DJD. There was no other suggestion of osseous or odontogenic abnormalities. Today we had a long discussion regarding the relationship between their chronic pain disorder and muscle tension. I explained to the patient how the contribution of their masticatory and cervical muscles, and increased autonomic nervous system activity together can contribute to their pain disorder. We discussed the different contributing factors to these symptoms. We also discussed oral habits which affect the jaw muscles, postural issues for the neck muscles and the role stress, tension, anxiety and emotions factors which play into autonomic nervous system arousal. We discussed how these issues may need to be addressed concurrently in order to effectively address their complaints. It was explained how the autonomic response can increase muscle tension in both the masticatory and cervical muscle groups. A multidisciplinary treatment plan to address all these factors was outlined with the patient. From a treatment perspective, I have recommended beginning a home self-management program designed to rest the muscles of mastication and reduce inflammation in the temporomandibular joints. This includes utilizing moist heat and ice compresses, eating a soft food or pain-free diet, bilateral chewing, identifying and decreasing daytime oral habits, as well as sleep position modification. Today I taught simple jaw exercises designed to improve the jaw mechanics and movement, improve range of mouth opening and improve TM joint fluid circulation to facilitate healing. This includes jaw stretch with relaxed breathing. This was both demonstrated and given in written format. Concurrently I taught proper posture. Beyond self-management, I believe there would be benefit from the use of a mandibular intraoral splint to help stabilize the musculoskeletal structures of the jaw, as well as to protect these structures from the ill effects of sleep bruxism. Eveline would like to discuss this option with his general dentist first. Briefly we discussed medication options and trigger point injections as a way to help bridge the gap into further multidisciplinary treatment. We mutually agreed to defer at this point. Additionally, I suggested working with our multi-specialty program, which would include work with our physical therapist on home stretching exercise, as well as posture correction (a referral was sent to [facility] Goodwin), as well as working with our health psychologist on relaxation, stress management techniques, and ways to reduce muscle tension. Eveline will consider this. In addition I've suggested that they have evaluation with one of our medical providers for further medical evaluation of their chronic pain disorder. Eveline will also consider this. I also recommended Eveline to follow-up with his ENT as scheduled to re-evaluate the sinus component associated with his symptoms, and also suggested that he discuss a re-evaluation of his RIYA with a sleep study. History was obtained from the patient. The patient has 5+ diagnoses they would like to address. This case is moderate complexity because of multiple diagnoses with chronic symptoms. Data reviewed included: previous imaging. Risk of complications include progressive disease/symptoms. Today time spent may have included a review of past records, history taking, review of diagnoses, contributing factors, treatment plan, diagnostic testing, prognosis, expectations, risks and complications of treatment/no treatment, discussions with other providers and completing documentation was 60 minutes. Cost of care and insurance coverage was reviewed and discussed with the patient Not available 12/20/2022 18:00:59 Plan of Treatment Reminders Order Date Submit Date Provider Last Modified By Organization Details Last Modified Time Details Appointments None recorded. Lab None recorded. Referral physical therapist referral - Please contact patient to schedule initial visit 2022 023 [facility]HE[facility] [place], [address], [place], [address], 18:40:10 Procedures None recorded. Surgeries None recorded. Imaging None recorded. Medication Orders None recorded. Patient TargetsNo targets recorded. Patient Instructions Encounter Date Encounter Id Patient Instructions Last Modified By Organization Details Last Modified Time 12/19/2022 [id number] Self Care for TMD Not avai lable 12/20/2022 18:36:46 Three Jaw Exercises Not available 12/20/2022 18:36:46 Reason for Referral Physical Therapist Referral for Myofascial pain Chronic myofascial pain (TMD/Headaches) Please contact patient to schedule initial visit Referring Physician: Ernesto Haq, Pain Management, Encounter Date: 12/19/2022 Results Created Date Observation Date Name Description Value Unit Range Abnormal Flag Note LastModifiedBy Organization Detail LastModifiedTime 12/20/19 XR, ortho panto gram No observ ation record ed. [email or web address] Not Available 2022 12:59:59 12/20/1912/19/2022 imagi ng/di agnos tic resul t No observ ation record ed. BARCODE Not Available 2022 17:42:02 Result Notes None recorded. Problems Name Problem SNOMED Code Status Onset Date Resolution Date Notes Provider Name and Address Organization Details Recorded Time Temporoma ndibular joint disorder 16558542 Active 2022 Kellie jiang [place] [facility] 17:29:47 Myofascia l pain 676824371 Active 2022 masticato ry and cervical ERNESTO GARCIA O, DDS,MS [address] [facility] [address], [place], [address], [facility] 3 22:53:06 Chronic pain 25653664 Active 2022 ERNESTO NASCIMENT O, DDS,MS [address], [place], [address], [facility] 3 13:56:33 Sleep related bruxism 334711529 Active 2022 ERNESTO NASCIMENT O, DDS,MS [address], [place], [address], [facility] 3 13:56:39 Obstructi ve sleep apnea of adult 960291476308 3 Active 2022 ERNESTO NASCIMENT O, DDS,MS [address], [place], [address], [facility] 3 13:56:45 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 Procedures Surgical History Date Name Laterality Status Provider Name and Address Organization Details Recorded Time Oral surgery procedure completed Kellie Marcos [facility] 12/19/2022 11:51:35 Imaging Results Imaging Date Name Status LastModified by Organization Details LastModified Time 12/19/2022 XR, orthopantogram completed [email or web address] Inform ation not available 12/19/2022 12:59:59 12/19/2022 imaging/diagnostic result completed BARCODE Information not available 12/19/2022 17:42:02 Procedure Notes None recorded. Medical Equipment None Reported. Allergies Allergen ID Allergen Name Allergen Category Reaction Reaction Severity Criticality Documentation Date Start Date Code Code System Note Provider Name and Address Organization Details Recorded Time 84146 latex environme nt,medica tion Not available Not available Not available 12/19/2022 95686 91 RxNorm Kellie jiang [facility] 11:35:47 Medications Name Sig Start Date Stop Date Status Note LastModified by Organization Details LastModified Time clonazepam 1 mg tablet active Not Available Not Available Not Available amlodipine 5 mg tablet 12/19 completed Not Available Not Available Not Available amlodipine 10 mg tablet active Not Available Not Available Not Available metformin 1,000 mg tablet active Not Available Not Available Not Available Fluticasone Propionate (Nasal) 50 mcg/DOSE inhaler [place] 1 spray every day by intranasa l route. active Not Available Not Available No t Available gabapentin 100 mg capsule active Not Available Not Available Not Available cefuroxime axetil 500 mg tablet active Not Available Not Available No t Available losartan 100 mg tablet active Not Available Not Available Not Available metformin ER 500 mg tablet,exte nded release 24 hr 12/19 completed Not Available Not Available Not Available amoxicillin 875 mg-potassiu m clavulanate 125 mg tablet active Not Available Not Available Not Available rosuvastati n 5 mg tablet active Not Available Not Available Not Available levothyroxi ne 150 mcg capsule Take 1 capsule every day by oral route. active Not Available Not Available No t Available Vitals Date Recorded Body weight Heart rate Body mass index (BMI) Body height Systolic blood pressure Diastolic blood pressure Provider Name and Address Organization Details Last Updated DateTime 3 284113. 79 g 75 /min 40.4 kg/m2 180.34 cm 166 mm[Hg] 92 mm[Hg] Kellie Marcos [facility] 11:47:18 Social History Question Answer Notes LastModified by Organizat ion Details LastModified Time Tobacco Smoking Status Former Smoker Kellie jiang [facility] 12/19/2022 11:50:31 What Is Your Level Of Alcohol Consumption? None Information not available 12/19/2022 What Is Your Level Of Caffeine Consumption? Moderate [email or web address] Information not available 12/19/2022 Are You Currently Employed? No [email or web address] Information not available 12/19/2022 What Type Of Diet Are You Following? VEGETARIAN [email or web address] Information not available 12/19/2022 What Is The Highest Grade Or Level Of School You Have Completed Or The Highest Degree You Have Received? 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 (0=no Pain, 10=pain As Bad As You Can Imagine) 7 [email or web address] Information not available 12/19/2022 How Many Years Have You Smoked Tobacco? 20 [email or web address] Information not available 12/19/2022 Sex: Unknown Functional Status Question Answer Note LastModified by Organizat ion Details LastModified Time What is your exercise level? Occasional Information not available 12/19/2022 Mental Status None recorded. Family History Relationship Description Onset Age of this Age Resolved Age Notes LastModified by Organization Details LastModified Time Mother Arthritis [email or web address] Not availab le 12/19/2022 11:48:37 Mother Headache [email or web address] Not availabl e 12/19/2022 11:48:47 Mother Rheumatoid arthritis [email or web address] Not available 2022 11:49:15 Father Heart disease Not available 2022 11:49:02 Medical History Condition Response Coronary Artery Disease N Gout N Other N Chronic fatigue syndrome N Hyperthyroidism N MRSA N Premenstrual syndrome (PMS) N Head Trauma/Injury N Emphysema N Irritable bowel syndrome N Hypothyroidism Y Depression N COPD N Lung Disease N Glaucoma N Pneumonia N Pacemaker N Orthopedic Problems N Obstructive Sleep Apnea Y Anxiety Disorder N Autoimmune disease N Muscle, Joint, or Bone Problems N Vision or Eye Problems N Arthritis Y Serious Illness or Injuries N Acid Reflux (GERD) Y Cancer N Stroke N Eating disorder N Neck Injury N Back Injury N High Cholesterol N History of chemotherapy N Neurologic Disorder N Liver Disease N Organ Transplant N Rheumatoid Arthritis N Headaches Y Fibromyalgia N Kidney Disease N Allergies/Hayfever Y Post traumatic stress disorder (PTSD) N Parkinson's Disease N Migraines N Thyroid Problems N Brain Tumors N Anemia N Multiple Sclerosis N Immune System Disorder N Meningitis N Pancreatic disease N Heart Attack (AK) N Stomach Ulcers N Back pain N Diabetes N Bleeding Disorder N Seizures/Epilepsy N Sjogren's syndrome N Tuberculosis N AIDS/HIV N History of radiation therapy N Hyperlipidemia N Dementia N Asthma N Physical or sexual abuse N Substance Abuse N Peripheral Vascular Disease N Psoriasis N Reflux/GERD N Mental Problems N Vertigo N Sleep Disorder N GERD/Reflux N Aneurysm N Hepatitis N Heart Disease N Neuropathy N Pulmonary Embolism N Hypertension Y Osteoporosis N Immunizations Vaccine Type Date Status Provider Name and Address Organization Details Recorded Time SARS-COV-2 COVID-19 DNA Non-US Vaccine (Zydus Cadila, ZyCoV-D) 03/05/2021 completed T[facility] 12/19/2022 11:48:24 Past Encounters Encounter ID Performer Location Encounter Start Date Encounter Closed Date Diagnosis/Indication Diagnosis SNOMED-CT Code Diagnosis ICD10 Code [id number] ERNESTO HAQ DDS,MS [facility] [address] [place] [address] 12/19/2022 11:16:19 12/19/2022 13:22:09 Myofascial pain 486112782 M79.11 M79.12 Chronic pain 78562558 G8 9.29 Sleep related bruxism 27 4726673 G47.63 Obstructiv e sleep apnea of adult 6012063362 103 G47.33 Bilateral temporomandibular joint articular disc disorder 9929976662 6163328 M26.633 Bilateral temporomandibular joint pain 2167843064 6829238 M26.623 Health Concerns Section Related Observation LastModified by Organization Detai ls LastModified Time None Recorded Concern Status LastModified by Organization Details LastModified Time None Recorded Advance Directives Directive None Recorded Payers Encounter Date Sequence Insurance Name Policy Number Policy Camilo Covered Member ID Camilo Member ID Guarantor Name 12/19/2022 2 [place] (MEDICARE [place] P[place]) [id number] Eveline Shrestha [id number] Eveline Shrestha 12/19/2022 1 MEDIC[place]: [employer] Eveline Shrestha [id number] Eveline Shrestha Notes Date Note Type Note Provider Name and Address Organization Details Recorded Time 12/19/2022 text/html HPI Notes: gener al HPI for jaw, face, TMD pain Reported by patient. Onset: started 40 year(s) ago Location: bilateral Quality: dull; aching; sore Severity: pain level 7/10; radiating to the head; neck, ear Duration intermittent daily; lasts hours; worsening Symptom triggers: clenching; stress; chews hard/crunchy/chewy foods; dental work; known systemic arthritis; history of trauma to the jaw Aggravating Factors: stress; clenching the teeth Alleviating Factors: NSAIDs; massage; ice; splint therapy Associated Symptoms: headaches; tinnitus Prior opinion dentist Symptoms status worse Patient presents today for evaluation of a possible temporomandibular disorder. These symptoms are chronic and began with no clear triggering events. Previous consultation include evaluation with his/her dentist. Symptoms are bilateral and aggravated by no clear triggers. The patient is aware of teeth clenching and grinding. Eveline presents for evaluation of bilateral jaw pain associated with bitemporal headaches and muscle tension. He has chronic history of jaw pain. Symptom started during childhood due to several dental treatments including a jaw surgery (he was not able to provide more details on the kind of surgery - unsure if Bilateral sagittal split osteotomy or [place] osteotomy). As a consequence he developed limited TMJ ROM. The jaw pain has been manageable over the years until he developed chronic sinusitis this past year. He is seeing ENT with sinuses CT for chronic sinusitis (he was recommend flonase and to return for follow-up in a month for re-evaluation). His main concern is that he finds himself clenching while stressed and also having frequent tension-type headaches from the muscle tension (no autonomic or migraine features). Pain is relieved/eliminated by massage alone or occasional ibuprofen 400mg. It's always a mild pressure/tender. The jaw pain is more severe upon awakening. He has tried a soft mandibular mouthguard without improvement. He also used to protect the multiple restorative dentistry that he has had. He also reports severe RIYA (wears CPAP nasal mask - reports last sleep study about 20 years ago), RLS and night eating syndrome. He also reports arthritis knees, ankles and hands. Three weeks ago he started Gabapentin 200mg qhs for his recent pain symptoms, He reports no improvement for pain, but it does help with sleep. He also takes Oxycodone prn (every 3 months for the past 3 or 4 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 ERNESTO HAQ DDS,MS [address] [facility] [address], [place], [address], [facility] 12/20/2022 18:36:51
--- OUTSIDE RECORDS SUMMARY | 2023-12-19 15:00 | XMS_ITS | Referral Summary ---
Author Organization [facility] Address [address] [place] [address] Care Team Providers Care Motion Picture Operator Name Role Phone Elsewhere, Pcp Primary Care Provider Unavailabl e Source Comments Patient records contain information from all sites at [facility]. For routine questions regarding patient records, call [phone] during business hours, M-F 8:00 AM - 5:00 PM Central Time. Record requests for emergency care only can be directed to [phone] at any time.[facility] Encounters Date Type Department Care Team Description 09/27/2023 6:29 AM CDT - 09/27/2023 6:43 AM CDT Emergency [facility] [address] [place] [id number] Pa Chandler, FREDRICK, C.N.P., M.S.N. 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 Higher concentrations of biotin may be found in multivitamins, hair/nail supplements, and workout supplements. If the result does not match clinical observations, repeat testing after patient refrains from the use of supplements for at least 12 hours. Blood 08/21/2016 7:37 AM CDT us Cristela Spears M.D. LAB BLOOD ADD-ON Edited [...] 20 MMOLL POWERCHART HXeGFR (MDRD) >60 >=60 [id number] 2 POWERCHART eGFR Black/ >60 >=60 [id number] 2 POWERCHART Bilirubin, Total, S 0.2 0.1 - 1.0 MGDL POWERCHART Total Protein, S 7.3 6.3 - 7.9 GDL POWERCHART Glucose 89 70 - 139 MGDL POWERCHART Blood 12/21/2015 1:35 PM CDT Cristela Spears M.D. LAB BLOOD ADD-ON Final [...] Electronically signed by: ?? Jemima Lopes MD [id number] 28-Jun-2015 11:14 Narrative 06/28/2015 11:14 AM CDT [...] disease. Electronically signed by: Jemima Lopes MD [id number] 28-Jun-2015 11:14 Sonido Garcia M.D. IMG CT PROCEDURES Final Result from Last 3 Months or Most Recently Relevant to Health Maintenance Insurance [facility] [place] [address] MEDICARE Care Teams Motion Picture Operator Relationship Specialty Start Date End Date Elsewhere, Pcp PCP - General Internal Medicine 10/01/19
== END 2023-12-19 11:05 | disposition home or self-care (01) ==
LOC: NFLDREF 14:58
PROVIDERS: PCP Family Medicine; Referring Provider Family Medicine; Visit Provider Family Medicine
DX: I10 Essential (primary) hypertension (principal); E78.5 Hyperlipidemia, unspecified; E03.9 Hypothyroidism, unspecified; R73.01 Impaired fasting glucose; G25.81 Restless legs syndrome; Z51.81 Encounter for therapeutic drug level monitoring
CPT/HCPCS: 80053; 80061; 82728; 84443

== ENCOUNTER 2024-08-08 15:28 | Outpatient (CLI) | payer MEDICARE, BC, SELFPAY ==
[2024-08-08 15:54] LABS: Creatinine* 0.8 mg/dL (0.5-1.5); Estimated Glomerular Filt Rate 95 ml/min
--- NOTE | 2024-08-08 16:00 | CRLHL7_ITS ---
For Patients: As a result of the Century Cures Act, medical imaging exams and procedure reports are released immediately into your electronic medical record. You may view this report before your referring provider. If you have questions, please contact your health care provider. INDICATION: Word finding difficulty. TECHNIQUE: CT of the head with and without contrast. Coronal and sagittal reformats are included. COMPARISON: Sinus CT from 12/13/2022. FINDINGS: There is a large enhancing mass within the left anterior basal frontotemporal region which measures up to 5.1 centimeters in AP dimension, 4.4 centimeters in TR dimension, and 5.4 centimeters in CC dimension. It is difficult to ascertain on this exam if it is intra-axial or extra-axial, although the latter is favored. Local/regional mass effect along with surrounding vasogenic edema results in complete effacement of the left lateral ventricle and up to 15 millimeters of [id number]-[id number] midline shift. No herniation. There is superior displacement of the left MCA by this mass. No CT evidence of acute cortical infarct. No hyperdense vessels to suggest intracranial thrombus. No acute intracranial hemorrhage. No hydrocephalus. No acute osseous abnormalities. Scattered mild paranasal sinus mucosal thickening. Normal soft tissues. IMPRESSION: 1. Large enhancing extra-axial mass within the left anterior basal frontotemporal region which measures up to 5.4 centimeters. It is favored to be extra-axial, although this is not definite. Local/regional mass effect and up to 15 millimeters of [id number]-dqsef midline shift. Contrast-enhanced MRI is recommended for more complete evaluation. 2. No CT evidence of acute ischemia. No acute intracranial hemorrhage. Please note that all CT scans at this facility use dose modulation, iterative reconstruction, and/or weight-based dosing when appropriate to reduce radiation dose to as low as reasonably achievable. Dictated by Juan A Ovalles MD @ 08/08/2024 4:39:54 PM (Electronically Signed)
== END 2024-08-08 15:29 | disposition home or self-care (01) ==
LOC: CT 15:28
PROVIDERS: PCP Family Medicine; Visit Provider Internal Medicine Endocrinology, Diabetes & Metabolism
DX: R47.89 Other speech disturbances (principal); R22.0 Localized swelling, mass and lump, head
CPT/HCPCS: 36415; 70470; 82565; Q9967

== ENCOUNTER 2024-08-08 16:35 | Emergency (ER) | payer MEDICARE, BC, SELFPAY ==
--- OUTSIDE RECORDS SUMMARY | 2020-05-28 01:28 | XMS_ITS | Continuity of Care Document ---
Author Organization [facility] Address [address] [address] [place] [address] Phone Care Team Providers Care Materials Coordinator Name Role Phone Breanna TIMMONS, Osbaldo Unavailable Unavailable Allergies, Adverse Reactions, Alerts Substance Reaction Status Criticality latex RASH Active No Information WARNIN allergy(ies) could not be collected because the type is not supported. Please contact the source practice for further details. Medications Medication Instructions Dosage Effective Dates (start - stop) Status Comments omeprazole 40 mg capsule,delayed release take 1 capsule by oral route every day 30-60 mins before breakfast 40 MG - Active Synthroid 150 mcg tablet take 1 tablet by oral route every day 150 MCG - Active losartan 100 mg tablet take 1 tablet by oral route every day 100 MG - Active metformin 500 mg tablet take 4 tablet by oral route every day with morning and evening meals 2000 MG - Active phentermine 37.5 mg tablet take 1 tablet by oral route every day before breakfast 37.5 MG - Active clonazepam 1 mg tablet take 1 tablet by oral route every day at bedtime - Active Procedures Procedure Date Established Level 3 Small Bowel PillCam Capsule 1st Day Small Bowel PillCam No Charge Agile Patency Capsule Sigmoidoscopy Flex; Dx (sep Pr Ugi Endo; W/bx 1/mx Level Iv-surg Path Gross/micro 21 Established Level 4 or 25-39 min 2019 New Level 2 or 20-29 min Advance Directives Directive Yes / No Effective Date File Name No Information Encounters Encounter Description Practice Location Reason(s) For Visit Diagnoses Date Provider Providers Copied on Encounter [facility], [address] [address], [place], [place], [address], [place] tel:[phone] [facility] No Information 1 Breanna Roblero. [address] [facility], [address], [place], [place], [address], [place]. tel:[phone] Established Level 3 [facility], [address] [address], [place], [place], [address], [place] tel:[phone] [facility] GI Symptoms or Concerns (chief complaint) Diverticulitis of large intestine with complication 1 Travis Umñaa. [address] [facility], [address], [place], [place], [address], [place]. tel:[phone] Referring Provider: Referral Self, USE FOR SELF REFERRALS. [facility], [address] [address], [place], [address], [place] tel:[phone] [facility] Noninfective gastroenteritis and colitis, unspecified 1 Breanna Roblero. [address] [facility], [address], [place], [place], [address], [place]. tel:[phone] Referring Provider: Leeroy Robles MD, [address] [facility] [address], [place], [address] . tel:[phone] [facility], [address] [address], [place], [address], [place] tel:[phone] [facility] No Information 1 Travis Umaña. [address] [facility], [address], [place], [address], [place]. tel:[phone] Referring Provider: Referral Self, USE FOR SELF REFERRALS. [facility], [address] [address], [place], [address], [place] tel:[phone] [facility] Noninfective gastroenteritis and colitis, unspecified 1 Steven Becker. [address] [facility] [address], [address], [place], [address], [place]. tel:[phone] Referring Provider: Leeroy Robles MD, [address] [facility] [address], [place], [address] . tel:[phone] [facility], [address] [address], [place], [address], [place] tel:[phone] [facility] No Information 1 Travis Umaña. [address] [facility] [address], [address], [place], [address], [place]. tel:[phone] Referring Provider: Referral Self, USE FOR SELF REFERRALS. [facility], [address] [address], [place], [place], [address], [place] tel:[phone] [facility] Noninfective gastroenteritis and colitis, unspecified 1 Travis Umaña. [address] [facility] [address], [address], [place], [place], [address], [place]. tel:[phone] Referring Provider: Referral Self, USE FOR SELF REFERRALS. [facility], [address] [address], [place], [address], [place] tel:[phone] [facility] Noninfective gastroenteritis and colitis, unspecified 1 Travis Umaña. [address] [facility], [address], [place], [address], [place]. tel:[phone] [facility], [address] [address], [place], [address], [place] tel:[phone] [facility] DuodenitisNoninf ective gastroenteritis and colitis, unspecifiedDiver ticulosis of colon without diverticulitisDu odenitis without bleedingNoninfec tive gastroenteritis and colitis, unspecifiedDvrtc los of lg int w/o perforation or abscess w/o bleeding 1 Travis Umaña. [address] [facility] [address], [address], [place], [address], [place]. tel:[phone] Referring Provider: Referral Self, USE FOR SELF REFERRALS. [facility], [address] [address], [place], [address], [place] tel:[phone] [facility] Hematemesis with nausea 0 Travis Umaña. [address] [facility], [address], [place], [address], [place]. tel:[phone] Referring Provider: Leeroy Robles MD, [address] [facility] [address], [place], [address] . tel:[phone] Established Level 4 or 25-39 min [facility], [address] [address], [place], [address], [place] tel:[phone] [facility] GI Symptoms or Concerns (chief complaint) Ileitis 0 Travis Umaña. [address] [facility], [address], [place], [place], [address], [place]. tel:[phone] Referring Provider: Patricia Moffett MD, [address] [place], [address]. tel:[phone] New Level 2 or 20-29 min [facility], [address] [address], [place], [address], [place] tel:[phone] [facility] GI Symptoms or Concerns (chief complaint) Ileitis 0 Kenrick Haynes. [address] [facility] [address], [address], [place], [address], [place]. tel:[phone] Referring Provider: Jackie Egan, [address] [place], [address]. tel:[phone] [facility], [address] [address], [place], [address], [place] tel:[phone] [facility] No Information 0 Roldan Zavaleta. [address] [facility], [address], [place], [address], [place]. tel:[phone] Family History Family Member Type Diagnosis Age At Onset Mother Problem (finding) malignant neop lasm of urinary bladder (Cause Of ) Brother Problem (finding) malignant neop lasm of liver (Cause Of ) Father Problem (finding) Sister Problem (finding) Alive and well Brother Problem (finding) malignant neop lasm of urinary bladder (Cause Of ) Immunizations Vaccine Date Status Comments Afluria Qd administered Note: [facility] bi-directional interface ; Source: Other Registry influenza, seasonal vaccine, quadrivalent, adjuvanted, .5mL dose, preservative free administered Note: [facility] bi-di rectional interface ; Source: Other Registry Pneumovax administered Note: [facility] bi-d irectional interface ; Source: Other Registry tetanus toxoid, reduced diphtheria toxoid, and acellular pertussis vaccine, adsorbed administered Note: [facility] b i-directional interface ; Source: Other Registry Afluria Qd administered Note: [facility] bi-directional interface ; Source: Other Registry influenza virus vaccine, unspecified formulation administered Note: [facility] bi-di rectional interface ; Source: Other Registry Payers Payer name Insurance type Covered libertarian ID Authoriza tion(s) Blue Cross [place] Blue BL [id number] Social History Type Description Quantity Date Captured Comments Alcohol Use Details Unknown Caffeine Use Details Unknown Tobacco Use Status No Information Smoking Status No Information Sex Male Chief Complaint And Reason For Visit No Information Reason For Referral Reason For Referral No Information Plan Of Treatment Date Type Action Status Referral Ordered: referred to Colon and Rectal Surgery ordered Referral Ordered: Agile Patency Capsule Appointment date/timeframe: 03/30/2020 ordered Referral Ordered: Small Bowel PillCam Appointment date/timeframe: -today ordered Referral Ordered: Xray Abdomen; Limited (AP View Only) (KUB) Appointment date/timeframe: 03/31/2020 ordered Referral Ordered: EGD Appointment date/timeframe: 03/19/2020 ordered Referral Ordered: Colonoscopy Appointment date/timeframe: 03/19/2020 ordered History Of Present Illness Encounter Date Complaint History Of Prese nt Illness GI Symptoms or Concerns Mr. Gregor howe is a 65-year-old gentleman who had a virtual visit with me today for followup of former concern for ileitis/Crohn's disease. He was last seen by me during a televisit for this problem on February 10, 2020. Please refer to that note for additional details.In brief, Mr. Shrestha developed acute onset of lower abdominal pain on the morning of January 26, 2020. CT scan at that time showed long segment of wall thickening of the distal ileum with uzvabgig-ro-oebvrk amount of adjacent inflammatory change consistent with ileitis. There was some mesenteric panniculitis as well. He was prescribed Augmentin and prednisone and subsequently a colonoscopy was discussed with him. His symptoms completely resolved after treatment with prednisone and Augmentin very rapidly and the patient has been asymptomatic since then. Finally, he underwent a colonoscopy and EGD with me on March 19, 2020. EGD showed some erosions in the duodenum suggestive of peptic or NSAID injury. Colonoscopy GI Symptoms or Concerns Mr. Gregor howe is a 65-year-old gentleman who had a televisit with me today for followup of ileitis. He was last seen by Ivy Choudhary PA-C, on January 28, 2020, for this problem. Please refer to that note for additional details.In brief, Mr. Shrestha developed acute onset of lower abdominal pain on the morning of January 26, 2020. He was seen by his primary care provider and a CT scan of the abdomen was obtained, which showed a long segment of wall thickening of the distal ileum with pxpumief-gz-yimkqa amount of adjacent inflammatory change consistent with ileitis. There was some mesenteric panniculitis seen as well. He was prescribed Augmentin and prednisone and was given some OxyContin to use to help with the pain. A followup appointment was scheduled with Ivy Choudhary where they discussed possibly obtaining a colonoscopy, but the patient wanted to wait a little bit due to COVID-19 and had a followup visit scheduled with me to discuss this further.The patient repor GI Symptoms or Concerns Eveline sosa is a 64-year-old male with a past medical history significant for obstructive sleep apnea on CPAP, hypothyroidism, colon polyps, hypertension, who presents for consultation at the request of his primary care physician, Dr. Jackie Fitzgerald, regarding acute ileitis. The visit takes place via a telephone visit. The patient consents to the visit.Mr. Shrestha reports that he was in his usual state of health when 2 days ago, he awoke in the morning and passed several normal stools. Immediately after, he developed severe pain in the epigastric area. The pain then gradually started to radiate down to the lower abdomen and became quite severe by later in the day. The patient did have some leftover hydrocodone from a previous surgery and took this with good relief of his pain. He was seen the following morning by his primary doctor and was sent for a CT scan which was completed yesterday. That exam showed a long segment of segmental wall thickening of the distal ileum wit Functional Status Date Functional Assessmen t No Information Instructions Date Instruction Additional Infor calin 1. 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 Of note, he does have a history of large polyps in the past and following his surgical management of complicated diverticulitis, he should obtain a repeat colonoscopy in a few months for polyp surveillance as his most recent colonoscopy from March was incomplete due to severe fixed sigmoid colon.2. We would not treat with any medications for Crohn's disease at this point since overall findings argue against Crohn's. Related to Diverticulitis of large intestine with complication 1. Hold off on furth er antibiotics or steroids for now.2. Repeat colonoscopy with terminal ileum evaluation and segmental colon biopsies to evaluate CT changes.3 If symptoms recur in the interim, I advised him to give me a call, in which case we will arrange a colonoscopy more urgently.4. Avoid NSAIDs in the interim.Follow up 1 week after colonoscopy for further management based on findings. I briefly did discuss that if this is Crohn's disease, he will likely need to be on chcf therapy, but will discuss in more details once we have an established diagnosis. Related to Ileitis Assessments Type Assessment Date No Information Patient Care Teams Name Effective Dates (start - stop) Status Members No Information
--- OUTSIDE RECORDS SUMMARY | 2020-05-28 01:28 | XMS_ITS | Continuity of Care Document ---
Author Organization [facility] Address [address] [address] [place] [address] Phone Care Team Providers Care Cook Ice Cream Name Role Phone Breanna TIMMONS, Osbaldo Unavailable [...] Diagnoses Date Provider Providers Copied on Encounter [facility], [address] [address], [place], [place], [address], [place] tel:[phone] [facility] No Information 1 Breanna Roblero. [address] [facility], [address], [place], [place], [address], [place]. tel:[phone] Established Level 3 [facility], [address] [address], [place], [place], [address], [place] tel:[phone] [facility] GI Symptoms or Concerns (chief complaint) Diverticulitis of large intestine with complication 1 Travis Umaña. [address] [facility], [address], [place], [place], [address], [place]. tel:[phone] Referring Provider: Referral Self, USE FOR SELF REFERRALS. [facility], [address] [address], [place], [place], [address], [place] tel:[phone] [facility] Noninfective gastroenteritis and colitis, unspecified 1 Breanna Roblero. [address] [facility] [address], [address], [place], [place], [address], [place]. tel:[phone] Referring Provider: Leeroy Robles MD, [address] [facility] [address], [place], [address] . tel:[phone] [facility], [address] [address], [place], [address], [place] tel:[phone] [facility] No Information 1 Travis Umaña. [address] [facility], [address], [place], [address], [place]. tel:[phone] Referring Provider: Referral Self, USE FOR SELF REFERRALS. [facility], [address] [address], [place], [place], [address], [place] tel:[phone] [facility] Noninfective gastroenteritis and colitis, unspecified 1 Steven Becker. [address] [facility] [address], [address], [place], [place], [address], [place]. tel:[phone] Referring Provider: Leeroy Robles MD, [address] [facility] [address], [place], [address] . tel:[phone] [facility], [address] [address], [place], [address], [place] tel:[phone] [facility] No Information 1 Travis Umaña. [address] [facility] [address], [address], [place], [place], [address], [place]. tel:[phone] Referring Provider: Referral Self, USE FOR SELF REFERRALS. [facility], [address] [address], [place], [address], [place] tel:[phone] [facility] Noninfective gastroenteritis and colitis, unspecified 1 Travis Umaña. [address] [facility] [address], [address], [place], [place], [address], [place]. tel:[phone] Referring Provider: Referral Self, USE FOR SELF REFERRALS. [facility], [address] [address], [place], [address], [place] tel:[phone] [facility] Noninfective gastroenteritis and colitis, unspecified 1 Travis Umaña. [address] [facility] [address], [address], [place], [address], [place]. tel:[phone] [facility], [address] [address], [place], [address], [place] tel:[phone] [facility] DuodenitisNoninf ective gastroenteritis and colitis, unspecifiedDiver ticulosis of colon without diverticulitisDu odenitis without bleedingNoninfec tive gastroenteritis and colitis, unspecifiedDvrtc los of lg int w/o perforation or abscess w/o bleeding 1 Travis Umaña. [address] [facility] [address], [address], [place], [address], [place]. tel:[phone] Referring Provider: Referral Self, USE FOR SELF REFERRALS. [facility], [address] [address], [place], [place], [address], [place] tel:[phone] [facility] Hematemesis with nausea 0 Travis Umaña. [address] [facility], [address], [place], [place], [address], [place]. tel:[phone] Referring Provider: Leeroy Robles MD, [address] [facility] [address], [place], [address] . tel:[phone] Established Level 4 or 25-39 min [facility], [address] [address], [place], [address], [place] tel:[phone] [facility] GI Symptoms or Concerns (chief complaint) Ileitis 0 Travis Umaña. [address] [facility], [address], [place], [place], [address], [place]. tel:[phone] Referring Provider: Patricia Moffett MD, [address] [place], [address]. tel:[phone] New Level 2 or 20-29 min [facility], [address] [address], [place], [address], [place] tel:[phone] [facility] GI Symptoms or Concerns (chief complaint) Ileitis 0 Kenrick Haynes. [address] [facility] [address], [address], [place], [place], [address], [place]. tel:[phone] Referring Provider: Jackie Egan, [address] [place], [address]. tel:[phone] [facility], [address] [address], [place], [address], [place] tel:[phone] [facility] No Information 0 Roldan Zavaleta. [address] [facility], [address], [place], [address], [place]. tel:[phone] Family History Family Member Type Diagnosis Age [...] Covered libertarian ID Authoriza tion(s) Blue Cross [place] Blue BL [id number] Social History Type Description Quantity Date Captured [...] wall thickening of the distal ileum with lwtbwyxq-vp-avxygk amount of adjacent inflammatory change consistent with [...] wall thickening of the distal ileum with tqwoqgsg-jk-pujfux amount of adjacent inflammatory change consistent with [...] he will likely need to be on assisted therapy, but will discuss in more details once we have an established diagnosis. Related to Ileitis Assessments Type Assessment Date No Information Patient Care Teams Name Effective Dates (start - stop) Status Members No Information
--- OUTSIDE RECORDS SUMMARY | 2024-08-08 16:38 | XMS_ITS | Clinical Summary ---
Author Organization [facility] Address [address] [place] [address] Care Team Providers Care Car Checker Name Role Phone Patricia Moffett MD Primary Care Provider + Allergies No known active allergies Medications levothyroxine (SYNTHROID) 137 mcg tablet 2 04/18/2016 Active clonazePAM (KLONOPIN) 0.5 mg tablet 3 04/20/2016 Active Jxmdy-6-QTY-EPA -Fish Oil (EPA-DHA 720) 290-430-1.4 mg-mg-gram cap Activ e metFORMIN (GLUCOPHAGE XR) 500 mg Extended-Releas e tablet 04/28/2019 Active niacin ER (NIASPAN) 500 mg Sustained-Relea se tablet Bedtime Active losartan (COZAAR) 100 mg [...] Date Diagnosed Date Coronary artery disease involving quinault coronar y artery 01/12/2017 Overview (01/12/2017): High [...] at Not on file 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 Gender Identity Not on file Sexual Orientation Not on file Obstetrics History Last Filed Vital Signs Vital Sign Reading Time Taken Comments Blood Pressure 153/84 11/01/2020 8:49 AM CDT Pulse 68 11/01/2020 8:49 AM CDT Temperature 36.8 C (98.3 F) 09/22/2019 1:22 PM CDT Respiratory Rate 18 11/01/2020 8:49 [...] age 18+ 1971 Hepatitis C screening for ag e 18-79 1971 Tetanus booster 1973 Colonoscopy through age 75 1998 Lipids for age 45-75 1998 Pneumococcal series for age 50+ (1 of 1 - PCV) 2003 Zoster (shingles) series for age 50+ (1 of 2) 2003 Medicare Wellness for age 65+ 2018 COVID-19 vaccine series ( season) 2023 06/01/2020, 05/11/2020 Influenza Vaccine (Season Ended) 2024 RSV vaccine for adults or (1 - 1-dose 75+ series) 02/05/2028 Hepatitis B series for 19+ Aged Out N o longer eligible based on patient's age to complete this topic Insurance [facility] BLUE MR PB ONLY MEDICARE PART B HB ONLY [facility] HB ONLY Care Teams Car Checker Relationship Specialty Start Date End Date Patricia Moffett MD [address] [place] [address] PCP - General Family Practice 11/01/20
--- OUTSIDE RECORDS SUMMARY | 2024-08-08 16:38 | XMS_ITS | Clinical Summary ---
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 [employer] Allergies Active Allergy Reactions Criticality Noted Date Comments Egg-Derived Products Gastrointestinal 0 Latex 03/19/2019 Milk-Related Compounds Gastrointestinal 020 Medications Probiotic CAPS 0 Active Magnesium Citrate 200 MG TABS 0 Active metFORMIN ER (GLUMETZA) 500 MG modified 24 hour release tablet Take 1,500 mg by mouth daily with breakfast. 360 Tablet 3 0 Active niacin 500 MG tablet Take 1 Tablet by mouth daily with breakfast. 0 Active Coenzyme Q10 100 MG 03/19/19 2 0 Active losartan (COZAAR) 50 MG tablet Take 100 mg by mouth daily. 90 Tablet 3 0 Active clonazePAM (KLONOPIN) 1 MG tablet Take 1 Tablet by mouth two times daily as needed for Anxiety. 0 Active levothyroxine (SYNTHROID) 150 MCG tablet Take 1 Tablet by mouth daily. 90 Tablet 3 0 Active cholecalciferol (VITAMIN D3) 25 MCG (1000 UT) tablet Taking 2,000 Unit OR DAILY, CAP 100 Tablet 3 0 Active cyanocobalamin (VITAMIN B12) 1000 MCG tablet Take 1 Tablet by mouth daily. 0 Active aspirin 81 MG chewable tablet Take 1 Tablet by mouth daily. 100 Tablet 3 0 Active celecoxib (CELEBREX) 200 MG capsuleIndications: Primary osteoarthritis involving multiple joints Take 1 Capsule by mouth two times daily as needed for Pain. 60 Capsule 5 0 Active diclofenac (VOLTAREN) 1 % gelIndications:Prim lori osteoarthritis involving multiple joints,Chronic bilateral low back pain without sciatica,Chronic pain of both knees,Primary osteoarthritis of both knees Apply 4 g to skin 4 times a day. 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 Pulse 87 04/14/2019 10:08 AM SLIPCOVER CUTTER Temperature - - Respiratory Rate - - Oxygen Saturation - - Inhaled Oxygen Concentration - - Weight 128.2 kg (282 lb 9.6 oz) 020 10:08 AM SLIPCOVER CUTTER Height 180.3 cm (5' 11) 04/14/2019 10: 08 AM SLIPCOVER CUTTER Body Mass Index 39.41 04/14/2019 10:08 AM SLIPCOVER CUTTER Plan of Treatment Health Maintenance Due Date Last Done Comments Colon Cancer Screening Plan Due 1955 Hep C Screening (Preventive Services) 1955 Medicare Annual Wellness Visit 1955 Cholesterol 02/05/1988 Zoster/Shingles Vaccine (1 of 2) 2003 Pneumococcal Vaccine 50+ Yrs (2 of 2 - PCV) 10/20/2020 10/21/2019 DTaP/Tdap/Td Vaccine (2 - Tdap) 06/12/2023 06/11/2013 COVID-19 Vaccine (3 - 2023-25 season) 2023 06/01/2020, 05/11/2020 Influenza Vaccine (Season Ended) 2024 12/18/2019, 11/05/2019, 01/17/2011, Additional history exists RSV Vaccine (1 - 1-dose 75+ series) 02/05/2028 HepA Vaccine Aged Out No longer eligi ble based on patient's age to complete this topic HepB Vaccine Aged Out No longer eligi ble based on patient's age to complete this topic Hib Vaccine Aged Out No longer eligi ble based on patient's age to complete this topic IPV (Polio) Vaccine Aged Out No longe r eligible based on patient's age to complete this topic MCV4 Vaccine Aged Out No longer eligi ble based on patient's age to complete this topic Meningococcal B Vaccine Aged Out No l onger eligible based on patient's age to complete this topic Insurance MEDICARE MANAGED CARE [facility] [place]
--- OUTSIDE RECORDS SUMMARY | 2024-08-08 16:38 | XMS_ITS | Data Portability ---
Author Organization [place] [facility] Address [facility] [address] Care Team Providers Care Facilities Maintenance Manager Name Role Phone REGAN HARRY SHERRY Dentist PJ YUSUF Primary Care Provider HOMER SAGASTUME BEVERLY Physical Therapist [phone] Assessment Encounter Date Assessment Date Assessment LastModified [...] patient to schedule initial visit 2022 023 [facility], [address], [place], [address], 18:40:10 Procedures None recorded. Surgeries None recorded. Imaging None recorded. Medication Orders None recorded. Patient TargetsNo targets recorded. Patient Instructions Encounter Date Encounter Id Patient Instructions Last Modified By Organization Details Last Modified Time 12/19/2022 [id number] Self Care for TMD Not avai lable [...] panto gram No observ ation record ed. [email or web address] Not Available 2022 12:59:59 12/20/19 23 12/19/2022 imagi ng/di agnos tic resul t No observ ation record ed. [email or web address] Not Available 2022 17:42:02 Result Notes None recorded. Problems Name Problem SNOMED Code Status Onset Date Resolution Date Notes Provider Name and Address Organization Details Recorded Time Temporoma ndibular joint disorder 45847427 Active 2022 Kellie jiang [place] [facility] 17:29:47 Myofascia l pain 135510860 Active 2022 masticato ry and cervical ERNESTO GARCIA O, DDS,MS [address] [facility] [address], [place] [place], [address], [place] [facility] 3 22:53:06 Chronic pain 76626070 Active 2022 ERNESTO NASCIMENT O, DDS,MS [address], [place], [address], [facility] 3 13:56:33 Sleep related bruxism 808874206 Active 2022 ERNESTO NASCIMENT O, DDS,MS [address], [place], [address], [facility] 3 13:56:39 Obstructi ve sleep apnea of adult 261080535145 3 Active 2022 ERNESTO NASCIMENT O, DDS,MS [address], [place], [address], [facility] 3 13:56:45 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 Procedures Surgical History Date Name Laterality Status Provider Name and Address Organization Details Recorded Time Oral surgery procedure completed Kellie Marcos [facility] 12/19/2022 11:51:35 Imaging Results None recorded. Procedure Notes None recorded. Medical Equipment None Reported. Allergies Allergen ID Allergen Name Allergen Category Reaction Reaction Severity Criticality Documentation Date Start Date Code Code System Note Provider Name and Address Organization Details Recorded Time 55400 latex environme nt,medica tion Not available Not available Not available 12/19/2022 07471 91 RxNorm Kellie jiang [facility] 3 11:35:47 Medications Name Sig Start Date Stop [...] Available Fluticasone Propionate (Nasal) 50 mcg/DOSE inhaler [place] 1 spray every day by intranasa l [...] Address Organization Details Last Updated DateTime 3 145059. 79 g 75 /min 40.4 kg/m2 180.34 cm 166 mm[Hg] 92 mm[Hg] Kellie Marcos [facility] 3 11:47:18 Social History Question Answer Notes LastModified by Organizat ion Details LastModified Time Tobacco Smoking Status Former Smoker Kellie jiang [facility] 12/19/2022 11:50:31 What Is Your Level Of Caffeine Consumption? Moderate [email or web address] Information not available 12/19/2022 What Type Of Diet Are You Following? VEGETARIAN [email or web address] Information not available 12/19/2022 What Is The Highest Grade Or Level Of School You Have Completed Or The Highest Degree You Have Received? 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 (0=no Pain, 10=pain As Bad As You Can Imagine) 7 [email or web address] Information not available 12/19/2022 How Many Years Have You Smoked Tobacco? 20 [email or web address] Information not available 12/19/2022 Sex: Unknown Functional Status Question Answer Note LastModified by Organizat ion Details LastModified Time What is your level of alcohol consumption? None [email or web address] Information not available 12/19/2022 Are you currently employed? No Information not available 12/19/2022 What is your exercise level? Occasional [email or web address] Information not available 12/19/2022 Mental Status None recorded. Family History Relationship Description Onset Age of this Age Resolved Age Notes LastModified by Organization Details LastModified Time Mother Arthritis [email or web address] Not availab le 12/19/2022 11:48:37 Mother Headache [email or web address] Not availabl e 12/19/2022 11:48:47 Mother Rheumatoid arthritis [email or web address] Not available 2022 11:49:15 Father Heart disease [email or web address] Not available 2022 11:49:02 Medical History Condition Response Coronary Artery Disease N Gout N Other N Chronic fatigue syndrome N Hyperthyroidism N Premenstrual syndrome (PMS) N MRSA N Head Trauma/Injury N Emphysema N Irritable bowel syndrome N COPD N Depression N Lung Disease N Glaucoma N Hypothyroidism Y Pneumonia N Pacemaker N Orthopedic Problems N Obstructive Sleep Apnea Y Anxiety Disorder N Muscle, Joint, or Bone Problems N Autoimmune disease N Vision or Eye Problems N Arthritis Y Serious Illness or Injuries N Acid Reflux (GERD) Y Cancer N Stroke N Eating disorder N Neck Injury N Back Injury N High Cholesterol N Neurologic Disorder N History of chemotherapy N Liver Disease N Organ Transplant N Rheumatoid Arthritis N Headaches Y Fibromyalgia N Kidney Disease N Allergies/Hayfever Y Post traumatic stress disorder (PTSD) N Parkinson's Disease N Migraines N Thyroid Problems N Brain Tumors N Anemia N Multiple Sclerosis N Immune System Disorder N Meningitis N Pancreatic disease N Heart Attack (VT) N Stomach Ulcers N Back pain N Diabetes N Bleeding Disorder N Seizures/Epilepsy N Sjogren's syndrome N Mental Health Concerns N Tuberculosis N AIDS/HIV N History of radiation therapy N Hyperlipidemia N Dementia N Asthma N Physical or sexual abuse N Substance Abuse N Peripheral Vascular Disease N Psoriasis N Reflux/GERD N Vertigo N Sleep Disorder N GERD/Reflux N Hepatitis N Aneurysm N Neuropathy N Heart Disease N Pulmonary Embolism N Hypertension Y Osteoporosis N Immunizations Vaccine Type Date Status Note Provider Nam e and Address Organization Details Recorded Time SARS-COV-2 COVID-19 DNA Non-US Vaccine (Kevin Gallegos, Chaitanya-D) 03/05/2021 completed [place] [facility] - [facility] 12/19/2022 11:48:24 Past Encounters Encounter ID Performer Location Encounter Start Date Encounter Closed Date Diagnosis/Indication Diagnosis SNOMED-CT Code Diagnosis ICD10 Code Diagnosis Note [id number] ERNESTO HAQ DDS,MS [place] [address] [place] [address] 12/19/2022 11:16:19 12/19/2022 13:22:09 Myofascial pain 332201299 M79.11 M79.12 long 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 machine y and cervical Chronic pain 78803842 G8 9.29 Sleep related bruxism 27 8513382 G47.63 Obstructiv e sleep apnea of adult 9219161152 103 G47.33 previous diagnosis Bilateral temporomandibular joint articular disc disorder 7503117761 0595532 M26.633 Bilateral TMJ disc displaceme nt - R/O TMJ DJD Bilateral temporomandibular joint pain 9469977290 7437372 M26.623 Bilateral TMJ arthralgia Health Concerns Section Related Observation LastModified by Organization Detai ls LastModified Time None Recorded Concern Status LastModified by Organization Details LastModified Time None Recorded Advance Directives Directive None Recorded Payers Encounter Date Sequence Insurance Name Policy Number Policy Camilo Covered Member ID Camilo Member ID Guarantor Name 12/19/2022 2 [place]) [id number] Eveline Shrestha [id number] Eveline Shrestha 12/19/2022 1 [place]: [employer] Eveline Shrestha [id number] Eveline Shrestha Notes Date Note Type Note Provider Name and Address Organization Details Recorded Time 12/19/2022 text/html general HPI for jaw, face, TMD painReported bypatient.Onset:starte d 40 year(s) ago Location:bilateral Quality:dull; aching; sore Severity:pain level 7/10; radiating to the head; neck, ear Durationintermittent daily; lasts hours; worsening Symptom triggers:clenching; stress; chews hard/crunchy/chewy foods; dental work; known systemic arthritis; history of trauma to the jaw Aggravating Factors:stress; clenching the teeth Alleviating Factors:NSAIDs; massage; ice; splint therapy Associated Symptoms:headaches;tin nitus Prior opiniondentist Symptoms statusworse Patient presents today for evaluation of a [...] 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 ERNESTO HAQ DDS,MS [address] [facility] [address], [place], [address], [place] [facility] 12/20/2022 18:36:51
--- OUTSIDE RECORDS SUMMARY | 2024-08-08 16:38 | XMS_ITS | Clinical Summary ---
Author Organization [facility] Address [address] [place] [address] Care Team Providers Care Tin Roller [employer] Mill Name Role Phone Elsewhere, Pcp Primary Care Provider Unavailabl e Source Comments Patient records contain information from all sites at [facility]. For routine questions regarding patient records, call [phone] during business hours, M-F 8:00 AM - 5:00 PM Central Time. 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 Gender Identity Not on file Sexual Orientation Not on file Last Filed Vital Signs Vital Sign Reading Time Taken Comments Blood Pressure 180/89 09/27/2023 6:19 AM CDT Pulse 79 09/27/2023 6:19 AM CDT Temperature 36.6 C (97.9 F) 09/27/2023 6:19 AM CDT Respiratory Rate 18 09/27/2023 6:19 AM CDT [...] for Diabetes Screening 12/20/2018 12/21/2015, 07/08/2015, 06/11/2013 DTaP,Tdap,and Td Vaccines (2 - Td or Tdap) 06/12/2023 06/11/2013 COVID-19 Vaccine ( season) 2023 06/09/2021, 03/05/2021, 12/02/2020, Additional history exists Influenza Vaccine (#1) 2023 2, 12/20/2020, 12/18/2019, Additional history exists Depression Screening (Annual PHQ-2) 03/05/2024 Fall Risk Screen (Annual) 03/05/2024 Abdominal Aortic Aneurysm (AAA) Screen Completed 06/28/2015 Pneumococcal vaccine (50+ years) Completed 11/01/2020, 10/21/2019 IPV Vaccines Aged Out No longer eligi ble based on patient's age to complete this topic Procedures Procedure Name Priority Date/Time Associated Diagnosis [...] Comment: Biotin has been identified by the alteration hand as a potential interfering substance. Higher concentrations [...] 20 MMOLL POWERCHART HXeGFR (MDRD) >60 >=60 [id number] 2 POWERCHART eGFR Black/ >60 >=60 [id number] 2 POWERCHART Bilirubin, Total, S 0.2 0.1 [...] clinical significance. Clinical correlation is recommended. FINDINGS: Nonobstructing stone in a right mid [...] Multilevel degenerative disc disease. Electronically signed by: Jemima Lopes MD [id number] 28-Jun-2015 11:14 Narrative 06/28/2015 11:14 AM CDT 28-Jun-2015 10:39:00 Exam: CT ABDOMEN wo & PELVIS wo Indications: Persistent right flank pain and hematuria. ORIGINAL REPORT - 28-Jun-2015 11:14:00 EXAM: CT scan of the Abdomen and Pelvis without IV contrast COMPARISON: None Procedure Note Jemima Lopes M.D. - 05/31/2017 [...] disease. Electronically signed by: Jemima Lopes MD [id number] 28-Jun-2015 11:14 Sonido Garcia M.D. [facility] [place] PROCEDURES Final Resul t from Last 3 Months or Most Recently Relevant to Health Maintenance Insurance [facility] [email or web address] MEDICARE Care Teams [employer] Relationship Specialty Start Date End Date Elsewhere, Pcp PCP - General Internal Medicine 10/01/19
[2024-08-08 16:53] VITALS: BP 187/92; PULSE 84; RESP 16; TEMP 37.4; O2SAT 98; BMI 34.4
--- NOTE | 2024-08-08 17:06 | ED.GENADULT ---
HPI - General Adult General Chief complaint: Neuro Symptoms/Altered Deficit Stated complaint: Imaging concerns Time Seen by Provider: 08/08/24 16:38 Source: patient Mode of arrival: ambulatory Limitations: no limitations History of Present Illness HPI narrative: 69-year-old male presenting to the ER today after he was in the CT suite having head CT and found to have a mass of his brain. Patient states that he has been having forgetfulness over the last approximately 3 months. In the last month it has gotten quite worse. Patient states that he forgets what things are called, forgets people's names. It is worse by the time evening arrives. states that he will be describing something and use a completely different word for example he will be talking about his foot but call at his elbow. He also states that he notices that the right leg is weaker than the left. He states that in the last several weeks his he has felt a little bit wobbly when walking and he does not feel quite as steady as he would. These have all been changes that have all been recently noticed. Because of this head CT was ordered. Related Data Home Medications ?Medication ?Instructions ?Recorded ?Confirmed semaglutide (weight loss) 2.4 2.4 mg subcut QWEEK 12/28/23 08/08/24 mg/0.75 mL subcutaneous pen injector Previous Rx's ?Medication ?Instructions ?Recorded amlodipine 10 mg tablet 10 mg PO QDAY #90 tabs 12/28/23 levothyroxine 150 mcg tablet 150 mcg PO DAILY #90 tabs 12/28/23 losartan 100 mg tablet 100 mg PO DAILY #90 tabs 12/28/23 clonazepam 1 mg tablet 1 mg PO HS PRN RLS #90 tabs 05/20/24 Allergies Allergy/AdvReac Type Severity Reaction Status Date / Time No Known Drug Allergies Allergy Verified 08/08/24 17:01 Review of Systems Status of ROS: Reports: 10 or more systems reviewed and unremarkable except as noted in History and below [facility] Medical History Restless legs syndrome ?G25.81 - Restless legs syndrome (ICD-10) Obesity with body mass index (BMI) of 30.0 to 39.9 ?E66.9 - Obesity, unspecified (ICD-10) Nodule of middle lobe of right lung (08/05/19) ?R91.1 - Solitary pulmonary nodule (ICD-10) Hypertension ?I10 - Essential (primary) hypertension (ICD-10) Agatston coronary artery calcium score greater than 400 (2017) ?R93.1 - Abnormal findings on diagnostic imaging of heart and coronary circulation (ICD-10) Morbid obesity with BMI of 40.0-44.9, adult ?E66.01 - Morbid (severe) obesity due to excess calories (ICD-10) ?Z68.41 - Body mass index [BMI] 40.0-44.9, adult (ICD-10) Obstructive sleep apnea treated with continuous positive airway pressure (CPAP) ?G47.33 - Obstructive sleep apnea (adult) (pediatric) (ICD-10) ?Z99.89 - Dependence on other enabling machines and devices (ICD-10) Tubular adenoma (09/27/17) ?D36.9 - Benign neoplasm, unspecified site (ICD-10) History of renal calculi (09/2019) ?Z87.442 - Personal history of urinary calculi (ICD-10) Enlarged prostate ?N40.0 - Benign prostatic hyperplasia without lower urinary tract symptoms (ICD-10) Diverticulitis ?K57.92 - Diverticulitis of intestine, part unspecified, without perforation or abscess without bleeding (ICD-10) Surgical History History of oral surgery (1972) ?Z98.890 - Other specified postprocedural states (ICD-10) History of lithotripsy (09/15/19) ?Z98.890 - Other specified postprocedural states (ICD-10) History of esophagogastroduodenoscopy (EGD) (03/2020) ?Z98.890 - Other specified postprocedural states (ICD-10) History of endoscopy ?Z98.890 - Other specified postprocedural states (ICD-10) History of colonoscopy (09/27/17) ?Z98.890 - Other specified postprocedural states (ICD-10) Family History Mother Bladder cancer, Onset Age: 84 Rheumatoid arthritis Osteoarthritis Brother Heart disease Father Heart disease Other Obesity Social History 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 Nonsmoker, quit 15 years ago,(2008) about 40 pack years in the past Exercise daily yd work house chores Rare alcohol use What is your current living situation?: I presently have a place to live Problems where you live: no known problems In the past 12 months, utilities in danger of being shut off: no In past 12 months, lack of transportation kept you from medical appts, meetings, work, or getting things needed for daily living: no In the past 12 mos, have been you worried that your food would run out before you had money to buy more?: never true In the past 12 mos, the food you bought just didn't last and you didn't have money to buy more?: never true Smoking Status: Former smoker How often does anyone, including family, friends and others, physically hurt you: never How often does anyone, including family, friends and others, insult or talk down to you: never How often does anyone, including family, friends and others, threaten you with harm: never How often does anyone, including family, friends and others, scream or curse at you: never Exam Narrative: Exam Narrative: Well-nourished well-developed patient in no acute distress. Alert and oriented. Answers questions appropriately. Mood and affect are appropriate. Thoughts are goal oriented and rational. No tangential or magical thinking noted. Patient speaks in full sentences without needing to catch his breath. Patient does tend to use many words to make his point, as if he can not find the right words to use. HEENT: Normocephalic atraumatic. Pupils are equally round reactive to light. Extraocular muscles are intact. Conjunctivae are moist without any icterus noted. Moist mucous membranes. Cardiovascular: Heart is regular rate and rhythm. Skin: Well perfused without any obvious rashes. Strength is 5/5 of the upper and lower extremities. Although the strength is maintain, patient does have difficulty elevating his right leg off the bed as compared to the left. Reflexes are 2+ and symmetric at the knees. Cranial nerves 3-12 are normal. There is no nystagmus either horizontally or vertically. Gait is unbalanced - patient has to really focus to walk a straight line. Const: Vital Signs, click to edit/add: Vital Signs - 24 hr 08/08/24 16:53 08/08/24 17:15 08/08/24 17:30 Temperature 99.3 F Pulse Rate 82 80 Pulse Rate [Pulse Oximeter] 84 Respiratory Rate 16 Blood Pressure Blood Pressure [Le ft Upper Arm] 187/92 H Pulse Oximetry 98 96 97 Oxygen Delivery Me thod Room Air 08/08/24 17:32 08/08/24 17:45 Temperature Pulse Rate 90 76 Pulse Rate [Pulse Oximeter] Respiratory Rate Blood Pressure 177/85 H Blood Pressure [Le ft Upper Arm] Pulse Oximetry 96 96 Oxygen Delivery Me thod Course Course ED Course: CT scan shows a mass with surrounding edema and mass effect. Vital Signs Vital signs: Initial Vital Signs Temperature 99.3 F 08/08/24 16:53 Temperature Source Temporal Artery Scan 08/08/24 16:53 Pulse Rate 84 08/08/24 16:53 Respiratory Rate 16 08/08/24 16:53 Blood Pressure 187/92 H 08/08/24 16:53 Blood Pressure Mean 123 H 08/08/24 16:53 Blood Pressure Position Semi-Fowlers 08/08/24 16:53 Pulse Oximetry 98 08/08/24 16:53 Oxygen Delivery Method Room Air 08/08/24 16:53 Vital Signs Temperature 99.3 F 08/08/24 16:53 Pulse Rate 84 08/08/24 16:53 Respiratory Rate 16 08/08/24 16:53 Blood Pressure 187/92 H 08/08/24 16:53 Pulse Oximetry 98 08/08/24 16:53 Oxygen Delivery Method Room Air 08/08/24 16:53 Temperature 99.3 F 08/08/24 16:53 Pulse Rate 76 08/08/24 17:45 Respiratory Rate 16 08/08/24 16:53 Blood Pressure 177/85 H 08/08/24 17:32 Pulse Oximetry 96 08/08/24 17:45 Oxygen Delivery Method Room Air 08/08/24 16:53 Medical Decision Making MDM Narrative Medical decision making narrative: 69-year-old male with newly discovered brain mass, symptomatic. I discussed patient with Dr. Carr, stemming machine operator at [facility], who felt that the patient did not need to be in the ICU and I agree with this. I talked to Dr. Estrada at [place] who accepted the patient for admission. However, I received a phone call from the robotic machine operator who stated that they got a hold of the neuro surgeon and that neurosurgeon requested the patient be transferred to [facility]. Therefore that is where the patient will go at this time. Patient will go by ambulance. Discussed with Dr. Limon giving patient dexamethasone, he stated that backed wait until they discussed with neurosurgeon. Imaging Data CT scan - head: Attestation: I have reviewed the pertinent imaging results. Radiologist's impression: TECHNIQUE: CT of the head with and without contrast. Coronal and sagittal reformats are included. COMPARISON: Sinus CT from 12/13/2022. FINDINGS: There is a large enhancing mass within the left anterior basal frontotemporal region which measures up to 5.1 centimeters in AP dimension, 4.4 centimeters in TR dimension, and 5.4 centimeters in CC dimension. It is difficult to ascertain on this exam if it is intra-axial or extra-axial, although the latter is favored. Local/regional mass effect along with surrounding vasogenic edema results in complete effacement of the left lateral ventricle and up to 15 millimeters of [id number] midline shift. No herniation. There is superior displacement of the left MCA by this mass. No CT evidence of acute cortical infarct. No hyperdense vessels to suggest intracranial thrombus. No acute intracranial hemorrhage. No hydrocephalus. No acute osseous abnormalities. Scattered mild paranasal sinus mucosal thickening. Normal soft tissues. IMPRESSION: 1. Large enhancing extra-axial mass within the left anterior basal frontotemporal region which measures up to 5.4 centimeters. It is favored to be extra-axial, although this is not definite. Local/regional mass effect and up to 15 millimeters of icvp-xq-daofc midline shift. Contrast-enhanced MRI is recommended for more complete evaluation. 2. No CT evidence of acute ischemia. No acute intracranial hemorrhage. Discharge Plan Discharge Clinical Impression: Brain mass Patient Disposition: [facility] Condition: Stable Prescriptions: No Action semaglutide (weight loss) 2.4 mg/0.75 mL pen injector 2.4 mg subcut QWEEK amlodipine 10 mg tablet 10 mg PO QDAY Qty: 90 3RF levothyroxine 150 mcg tablet 150 mcg PO DAILY Qty: 90 3RF losartan 100 mg tablet 100 mg PO DAILY Qty: 90 3RF clonazepam 1 mg tablet 1 mg PO HS PRN (Reason: RLS) Qty: 90 1RF Stand Alone Forms: MyHealth Info Instructions
[2024-08-08 17:15] VITALS: PULSE 82; O2SAT 96
[2024-08-08 17:30] VITALS: PULSE 80; O2SAT 97
[2024-08-08 17:32] VITALS: BP 177/85; PULSE 90; O2SAT 96
[2024-08-08 17:45] VITALS: PULSE 76; O2SAT 96
[2024-08-08 23:12] VITALS: BP 187/99; PULSE 72; RESP 16; O2SAT 97
== END 2024-08-09 01:29 | disposition short-term general hospital (02) ==
PROVIDERS: Emergency Provider Family Medicine; PCP Family Medicine
DX: G93.89 Other specified disorders of brain (principal); R47.89 Other speech disturbances
CPT/HCPCS: 99284; 99285

== ENCOUNTER 2024-08-09 01:20 | Outpatient (CLI) | payer MEDICARE, BC, SELFPAY | END 2024-08-09 01:21 | disposition home or self-care (01) | PROVIDERS: PCP Family Medicine; Visit Provider Emergency Medicine Emergency Medical Services | DX: D32.9 Benign neoplasm of meninges, unspecified (principal) | CPT/HCPCS: A0425; A0427 ==

== ENCOUNTER 2024-09-23 09:29 | Outpatient (CLI) | payer MEDICARE, BC, SELFPAY ==
--- NOTE | 2024-09-23 10:00 | CRLHL7_ITS ---
For Patients: As a result of the Century Cures Act, medical imaging exams and procedure reports are released immediately into your electronic medical record. You may view this report before your referring provider. If you have questions, please contact your health care provider. INDICATION: Headaches, recent meningioma resection. TECHNIQUE: Noncontrast CT of the head with multiplanar reconstruction utilizing bone and soft tissue algorithms. COMPARISON: CT head dated 08/08/2024. FINDINGS: Interval left frontotemporal craniotomy for underlying meningioma resection. Small extra-axial collection underlying the craniotomy measuring up to 4 mm in thickness. Residual hypoattenuation within the left frontal lobe likely representing vasogenic edema. No new intracranial hemorrhage or CT evidence of cortical infarct. Normal caliber of the supratentorial ventricles with decreased effacement of the left temporal horn. Persistent but decreased now 4 mm rightward midline shift. No aggressive calvarial lesion. Symmetric globes. The paranasal sinuses and mastoid air cells are clear. IMPRESSION: 1. No new intracranial hemorrhage or mass effect. 2. Interval left frontotemporal craniotomy for underlying meningioma resection. 3. Decreased mass effect on the left lateral ventricle with persistent but decreased rightward midline shift. Please note that all CT scans at this facility use dose modulation, iterative reconstruction, and/or weight-based dosing when appropriate to reduce radiation dose to as low as reasonably achievable. Dictated by Mynor Sharp MD @ 09/24/2024 9:05:44 AM (Electronically Signed)
== END 2024-09-23 09:30 | disposition home or self-care (01) ==
LOC: CT 09:30
PROVIDERS: PCP Family Medicine; Visit Provider Physician Assistant
DX: R51.9 Headache, unspecified (principal); R22.0 Localized swelling, mass and lump, head; Z98.890 Other specified postprocedural states
CPT/HCPCS: 70450

== ENCOUNTER 2024-09-30 07:46 | Emergency (ER) | payer MEDICARE, BC, SELFPAY ==
[2024-09-30] VITALS (31 sets, daily range): BP systolic 155–219; BP diastolic 74–101; PULSE 62–82; RESP 10–25; TEMP 36.6; O2SAT 94–98; BMI 34.3
--- OUTSIDE RECORDS SUMMARY | 2024-09-30 07:48 | XMS_ITS | Data Portability ---
Author Organization [place] [facility] Address [address] [address] Care Team Providers Care Roll Repairer Name Role Phone REGAN HARRY SMICHAPARRO Dentist PJ YUSUF Primary Care Provider HOMER SAGASTUME SEATTLE Physical Therapist Assessment Encounter Date Assessment Date [...] initial visit 2022 023 ATHENAFAX [facility] [place], [address], [place], [address], 18:40:10 Procedures None recorded. Surgeries None recorded. Imaging None recorded. Medication Orders None recorded. Patient TargetsNo targets recorded. Patient Instructions Encounter Date Encounter Id Patient Instructions Last Modified By Organization Details Last Modified Time 12/19/2022 [id number] Self Care for TMD Not avai lable [...] panto gram No observ ation record ed. [email or web address] Not Available 2022 12:59:59 12/20/1912/19/2022 imagi ng/di agnos tic resul t No observ ation record ed. BARCODE Not Available 2022 17:42:02 Result Notes None recorded. Problems Name Problem SNOMED Code Status Onset Date Resolution Date Notes Provider Name and Address Organization Details Recorded Time Temporoma ndibular joint disorder 06727639 Active 2022 TAVON Lau - [facility] 17:29:47 Myofascia l pain 223378400 Active 2022 masticato ry and cervical ERNESTO GARCIA O, DDS,MS [address], [place], [address], [facility] 3 22:53:06 Chronic pain 38415985 Active 2022 ERNESTO NASCIMENT O, DDS,MS [address], [place], [address], [facility] 3 13:56:33 Sleep related bruxism 497558427 Active 2022 ERNESTO NASCIMENT O, DDS,MS [address], [place], [address], [facility] 3 13:56:39 Obstructi ve sleep apnea of adult 273434399035 3 Active 2022 ERNESTO NASCIMENT O, DDS,MS [address], [place], [address], [facility] 3 13:56:45 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 Procedures Surgical History Date Name Laterality Status Provider Name and Address Organization Details Recorded Time Oral surgery procedure completed Kellie Marcos [facility] 12/19/2022 11:51:35 Imaging Results None recorded. Procedure Notes None recorded. Medical Equipment None Reported. Allergies Allergen ID Allergen Name Allergen Category Reaction Reaction Severity Criticality Documentation Date Start Date Code Code System Note Provider Name and Address Organization Details Recorded Time 86244 latex environme nt,medica tion Not available Not available Not available 12/19/2022 76845 91 RxNorm Kellie Jessicaranjith jiang [facility] 11:35:47 Medications [...] Available Fluticasone Propionate (Nasal) 50 mcg/DOSE inhaler [place] 1 spray every day by intranasa l [...] Body mass index (BMI) Body height Systolic And Diastolic Provider Name and Address Organization Details Last Updated DateTime 12/19/2022 569911.7 9 g 75 /min 40.4 kg/m2 180.34 cm 166/92 mm[Hg] Kellie Marcos [facility] 3 11:47:18 Social History Question Answer Notes LastModified by Organizat ion Details LastModified Time Tobacco Smoking Status Former Smoker Kellie Jessicaranjith jiang [facility] 12/19/2022 11:50:31 What Is Your Level Of Caffeine Consumption? Moderate [email or web address] Information not available 12/19/2022 What Type Of Diet Are You Following? VEGETARIAN [email or web address] Information not available 12/19/2022 What Is The Highest Grade Or Level Of School You Have Completed Or The Highest Degree You Have Received? NA42940-2 Clinical Psychologist Information not available 12/19/2022 What Number Best Describes Your Pain On Average In The Past Week? (0=no Pain, 10=pain As Bad As You Can Imagine) 7 [email or web address] Information not available 12/19/2022 How Many Years Have You Smoked Tobacco? 20 [email or web address] Information not available 12/19/2022 Sex: Unknown Functional Status Question Answer Note LastModified by Organizat ion Details LastModified Time What is your level of alcohol consumption? None [email or web address] Information not available 12/19/2022 Are you currently employed? No [email or web address] Information not available 12/19/2022 What is your exercise level? Occasional [email or web address] Information not available 12/19/2022 Mental Status None recorded. Family History Relationship Description Onset Age of this Age Resolved Age Notes LastModified by Organization Details LastModified Time Mother Arthritis [email or web address] Not availab le 12/19/2022 11:48:37 Mother Headache [email or web address] Not availabl e 12/19/2022 11:48:47 Mother Rheumatoid arthritis [email or web address] Not available 2022 11:49:15 Father Heart disease [email or web address] Not available 2022 11:49:02 Medical History Condition Response Coronary Artery Disease N Gout N Other N Chronic fatigue syndrome N Hyperthyroidism N Premenstrual syndrome (PMS) N MRSA N Head Trauma/Injury N Emphysema N Irritable bowel syndrome N Glaucoma N Lung Disease N COPD N Hypothyroidism Y Depression N Pneumonia N Pacemaker N Orthopedic Problems [...] Meningitis N Pancreatic disease N Heart Attack (RI) N Stomach Ulcers N Back pain N [...] Gallegos, Chaitanya-D) 03/05/2021 completed TAVON Lau - [facility] 12/19/2022 11:48:24 Past Encounters Encounter ID Performer Location Encounter Start Date Encounter Closed Date Diagnosis/Indication Diagnosis SNOMED-CT Code Diagnosis ICD10 Code Diagnosis Note [id number] ERNESTO HAQ DDS,MS [place] [address] [place] [address] 12/19/2022 11:16:19 12/19/2022 13:22:09 Myofascial pain 361888356 M79.11 M79.12 coremaker y and cervical Chronic pain 48899735 G8 9.29 Sleep related bruxism 27 1146468 G47.63 Obstructiv e sleep apnea of adult 9343705056 103 G47.33 previous diagnosis Bilateral temporomandibular joint articular disc disorder 2640810376 8864858 M26.633 Bilateral TMJ disc displaceme nt - R/O TMJ DJD Bilateral temporomandibular joint pain 2281295775 7938376 M26.623 Bilateral TMJ arthralgia Health Concerns Section Related Observation LastModified by Organization Detai ls LastModified Time None Recorded Concern Status LastModified by Organization Details LastModified Time None Recorded Advance Directives Directive None Recorded Payers Insurance Date Sequence Insurance Name Policy Number Policy Camilo Covered Member ID Camilo Member ID Guarantor Name 03/19/2023 2 [place] [id number] Eveline Shrestha [id number] Eveline Shrestha 12/29/2022 2 [place] [id number] Eveline Shrestha [id number] Eveline Shrestha 03/19/2023 1 [place] [employer] Eveline Shrestha [id number] Eveline Shrestha
--- OUTSIDE RECORDS SUMMARY | 2024-09-30 07:49 | XMS_ITS | Clinical Summary ---
Author Organization [facility] Address [address] [place] [address] Care Team Providers Care Shank Threader Name Role Phone Elsewhere, Pcp Primary Care Provider Unavailabl e Source Comments Patient records contain information from all sites at [facility]. For routine questions regarding patient records, call [phone] during business hours, M-F 8:00 AM - 5:00 PM Central Time. 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 Higher concentrations [...] 20 MMOLL POWERCHART HXeGFR (MDRD) >60 >=60 [id number] 2 POWERCHART eGFR Black/ >60 >=60 [id number] 2 POWERCHART Bilirubin, Total, S 0.2 0.1 [...] disease. Electronically signed by: Jemima Lopes MD [id number] 28-Jun-2015 11:14 Narrative 06/28/2015 11:14 AM CDT [...] disease. Electronically signed by: Jemima Lopes MD [id number] 28-Jun-2015 11:14 Sonido Garcia M.D. [facility]ED[place] Final Resul t from Last 3 Months or Most Recently Relevant to Health Maintenance Insurance [facility] MEDICARE Care Teams Shank Threader Relationship Specialty Start Date End Date Elsewhere, Pcp PCP - General Internal Medicine 10/01/19
--- OUTSIDE RECORDS SUMMARY | 2024-09-30 07:49 | XMS_ITS | Clinical Summary ---
Author Organization [facility] Address [address] [place] [address] Care Team Providers Care Adjunct Trainer Name Role Phone Unavailable Primary Care Provider [...] for each transition of care or referral. [place] Allergies Active Allergy Reactions Criticality Noted Date [...] Comments Blood Pressure 145/82 04/14/2019 10:08 AM AGRICULTURAL CHEMICALS INSPECTOR Pulse 87 04/14/2019 10:08 AM AGRICULTURAL CHEMICALS INSPECTOR Temperature - - Respiratory Rate - - Oxygen Saturation - - Inhaled Oxygen Concentration - - Weight 128.2 kg (282 lb 9.6 oz) 020 10:08 AM AGRICULTURAL CHEMICALS INSPECTOR Height 180.3 cm (5' 11) 04/14/2019 10: 08 AM AGRICULTURAL CHEMICALS INSPECTOR Body Mass Index 39.41 04/14/2019 10:08 AM AGRICULTURAL CHEMICALS INSPECTOR Plan of Treatment Health Maintenance Due Date [...] 2023-25 season) 2023 06/01/2020, 05/11/2020 Influenza Vaccine (#1) 2024 , 11/05/2019, 01/17/2011, Additional history exists RSV Vaccine [...] [facility]
--- OUTSIDE RECORDS SUMMARY | 2024-09-30 07:49 | XMS_ITS | Clinical Summary ---
Author Organization [employer] [facility] Address [address] [place] [address] Care Team Providers Care Director Of Analytical Development Name Role Phone Patricia Moffett MD Primary Care Provider + Mila Sanabria RN Unavailable Shira Montejo Unavailable Allergies No known active allergies Medications cholecalciferol (Vitamin D) 1,000 unit tablet Take 2,000 units by mouth once daily. Active cyanocobalamin 1,000 mcg tablet Take 1,000 mcg by mouth once daily. Active clonazePAM 1 mg tablet Take 1 mg by mouth at bedtime. Active semaglutide 2.5 mg/mL soln Inject subcutaneous once weekly. Active levothyroxine 150 mcg tablet Take 150 mcg by mouth before breakfast. Active acetaminophen 500 mg tabletIndicatio ns:Brain mass Take 2 Tablets (1,000 mg) by mouth 4 times daily if needed for Headache. Max acetaminophen dose: 4000mg in 24 hrs. 60 Tablet 5 11:52 AM CDT 08/18/19 25 Active levETIRAcetam 500 mg tabletIndicatio ns:S/P resection of meningioma Take 1 Tablet (500 mg) by mouth two times daily. 120 Tablet 5 11:52 AM CDT 08/18/19 25 Active sennosides-docu sate (8.6-50 mg) tabletIndicatio ns:S/P resection of meningioma Take 2-4 Tablets by mouth two times daily. 30 Tablet 5 11:52 AM CDT 08/18/19 25 Active famotidine 20 mg tabletIndicatio ns:S/P resection of meningioma Take 1 Tablet (20 mg) by mouth two times daily. 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 12 Tablet 09/19/19 25 Active oxyCODONE (ROXICODONE) 5 mg immediate release tabletIndicatio ns:S/P resection of meningioma Take 1 Tablet (5 mg) by mouth every 4 hours if needed for Pain (For moderate to severe pain.). 20 Tablet 09/19/19 25 Active oxyCODONE 5 mg immediate release tabletIndicatio ns:S/P resection of meningioma Take 1 Tablet (5 mg) by mouth every 4 hours if needed for Pain (For moderate to severe pain.). 20 Tablet 5 11:52 AM CDT 08/16/19 25 025 Discontin ued(Reord er (E-cancel not sent)) dexAMETHasone 2 mg tabletIndicatio ns:S/P resection of meningioma With food, take 2 tablets (4mg) 3 times daily for 2 days. THEN take 1 tablet (2mg) 4 times daily for 2 days. THEN take 1 tablet (2mg) 3 times daily for 2 days. THEN take 1 tablet (2 mg) 2 times daily for 2 days. THEN take 1 tablet once daily for 2 days. THEN STOP. 32 Tablet 5 11:52 AM CDT 08/18/19 25 025 Discontin ued(*Medi cation adjustmen t) Active Problems Problem Noted Date Diagnosed Date S/P craniotomy 08/15/2024 S/P resection of meningioma 08/14/2024 Acute encephalopathy 08/14/2024 Expressive aphasia 08/14/2024 Brain mass 08/10/2024 Vasogenic brain edema 08/09/2024 Coronary artery disease involving [place] coronar y artery 01/12/2017 Overview (01/12/2017): High CAC score Mixed hyperlipidemia 01/12/2017 Arthritis of left knee 07/04/2016 Hypothyroid Restless legs Encounters Date Type Department Care Team Description 09/25/2024 Orders Only [facility] [address] [phone] Nalini Fu PA 1 scan: (1-Ord) [place], CT HEAD/BRAIN WO CON, 09/23/2024 09/19/2024 Patient Outreach [facility] [address] [facility] [address] [place] [address] Mila Sanabria RN Brain Injury Rehab Care Coordination - [facility] 09/18/2024 1:00 PM CDT Office Visit [facility] [address] [phone] Nalini Fu PA Follow Up (WOUND CHECK /s/p 08/14/24 Stealth-guided LEFT pterional craniotomy /) 09/18/2024 Travel 09/17/2024 Telephone [facility] [address] [address] Blade Jonas MD Concerns 09/09/2024 Telephone [facility] [address] [phone] Blade Jonas MD Sx's 08/26/2024 1:30 PM CDT Office Visit [facility] [address] [phone] Nalini Fu PA Post-op (2 week suture removals. 08/14/24 S/P Stealth-guided LEFT pterional craniotomy) 08/26/2024 Travel 08/21/2024 Travel 08/20/2024 Patient Outreach [facility] [address] [address] Mila Sanabria RN Brain Injury Rehab Care Coordination - [facility] 08/17/2024 Travel 08/14/2024 7:34 AM CDT Anesthesia Event [facility] [address] [place] [address] Larisa Patterson MD 08/14/2024 7:00 AM CDT - 08/14/2024 12:[address] [facility] [address] [place] [address] Blade Jonas MD Stealth-guided LEFT pterional craniotomy 08/10/2024 Orders Only [facility] [address] [phone] Chacho ramirez, Courtney Quach NP <No scans attached> 08/09/2024 2:20 AM CDT - 08/17/2024 1:03 PM CDT Hospital Encounter [facility] [address] [place] [address] Jimbo More MD Litell, John Martin, DO Vujkovic, Sinisa, MD Melamed, Roman, MD Haung, Jimmy, MD Vasquez, Blade Lama MD S/P resection of meningioma (Primary Dx); Brain mass; Brain tumor (HC); Expressive aphasia Discharge Disposition: Home Self Care from Last 3 Months Family History Medical History Relation Name Comments Rheum arthritis Mother Relation Name Status Comments Mother Social History Tobacco Use Types Packs/Day Years Used Date Smoking Tobacco: Former Smokeless Tobacco: Never Tobacco Cessation:Counseling Given: Yes Alcohol Use Standard Drinks/Week Comments Not Currently 0 (1 standard drink = 0.6 oz pur e alcohol) Social Connections Answer Date Recorded Do you often feel lonely or isolated from those around you? 0 08/17/2024 Financial Resource Strain Answer Date R ecorded Difficulty of Paying Living Expenses 3 08/17/2024 Difficulty of Paying Living Expenses Not on file 08/17/2024 Food Insecurity Answer Date Recorded Do you worry your food will run out before you are able to buy more? 1 08/17/2024 Transportation Needs Answer Date Record ed Does lack of transportation keep you from medica l appointments? 1 08/17/2024 Does lack of transportation keep you from work, meetings or getting things that you need? 1 08/17/2024 Housing Stability Answer Date Recorded What is your housing situation today? 1 08/17/2024 Interpersonal Safety Answer Date Record ed Are you being hit, kicked, p ushed or yelled at (see row info)? No 08/17/2024 Interpersonal Safety Abuse 12 - 18 Not on file 08/17/2024 Interpersonal Safety Ambulatory Vulnerability No t on file 08/17/2024 Utilities Answer Date Recorded Do you have trouble paying f or utilities (for example, heat, electricity, water, phone)? 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[employer] Gender Identity Not on file Sexual Orientation Not on file Obstetrics History Last Filed Vital Signs Vital Sign Reading Time Taken Comments Blood Pressure 181/82 09/18/2024 12:41 PM CDT Pulse 61 09/18/2024 12:41 PM CDT Temperature 36.9 C (98.5 F) 09/18/2024 12:41 PM CDT Respiratory Rate 16 09/18/2024 12:4 1 PM CDT Oxygen Saturation 99% 09/18/2024 12: 41 PM CDT Inhaled Oxygen Concentration - - Weight 115.4 kg (254 lb 6.4 oz) 025 12:41 PM CDT Height 179.1 cm (5' 10.5) 09/18/2024 1 2:41 PM CDT Body Mass Index 35.99 09/18/2024 12:41 PM CDT Plan of Treatment Health Maintenance Due Date Last Done Comments Tetanus booster 02/05/1964 Depression screening for age 12+ 1965 Hepatitis C screening for age 18-79 1971 Pneumococcal series for age 50+ (1 of 2 - PCV) 02/05/1972 Colonoscopy through age 75 1998 Lipids for age 45-75 1998 Zoster (shingles) series for age 50+ (1 of 2) 2003 RSV vaccine for adults or (1 - Risk 60-74 years 1-dose series) 2013 AAA screening age 65-74 2018 Medicare Wellness for age 65+ 2018 COVID-19 vaccine series ( season) 2023 06/09/2021, 12/02/2020, 06/01/2020, Additional history exists Influenza Vaccine (#1) 2024 BMI (ht and wt on same day) for age 18+ 09/18/2025 09/18/2024 Hepatitis B series for 19+ Aged Out N o longer eligible based on patient's age to complete this topic Medical Devices Implanted Type Area [employer] Device Identifier Shelf Expiration Date Model / Serial / Lot Dura-Guard Implanted:Qty: 1 on 08/14/2024 by Blade Jonas MD at [facility] Left: Cranium 05/09/2028 [id number] / / [id number] Screw Neuro 4mm Matrixneuro Slf Drill Titnm - [id number] Implanted:Qty: 15 on 08/14/2024 by Blade Jonas MD at [facility] Left: Cranium J And J Depuy CMF [id number] 4.01 / / Plate Facial [id number] 4hole Synthes Box - [id number] Implanted:Qty: 1 on 08/14/2024 by Blade Jonas MD at [facility] Left: Cranium J And J Depuy CMF [id number] / / [place] Hole Cover Neuro 17mm Synthes Low Pro Titnm - [id number] Implanted:Qty: 3 on 08/14/2024 by Blade Jonas MD at [facility] Left: Cranium J And J Depuy CMF [id number] / / Procedures Procedure Name Priority Date/Time Associated Diagnosis Comments CT HEAD BRAIN WO BENITO 09/23/2024 12:0 0 AM CDT Chronic intractable headache, unspecified headache type S/P resection of meningioma GLUCOSE METER Timed 08/17/2024 3:28 AM CDT GLUCOSE METER Timed 08/16/2024 10:31 PM CDT GLUCOSE METER Timed 08/16/2024 5:42 PM CDT GLUCOSE METER Timed 08/16/2024 11:24 AM CDT MAGNESIUM BENITO 08/16/2024 10:36 AM CDT WHITE BLOOD COUNT Early AM 08/16/2024 10: 36 AM CDT BASIC METABOLIC PANEL Early AM 08/16/2024 10:36 AM CDT PHOSPHORUS Early AM 08/16/2024 10:36 AM CDT GLUCOSE METER Timed 08/16/2024 4:31 AM CDT GLUCOSE METER Timed 08/15/2024 9:59 PM CDT MAGNESIUM Early AM 08/15/2024 5:48 AM CDT PHOSPHORUS Early AM 08/15/2024 5:48 AM CDT CBC W PLT NO DIFF Early AM 08/15/2024 5:4 8 AM CDT BASIC METABOLIC PANEL Early AM 08/15/2024 5:48 AM CDT GLUCOSE METER Timed 08/15/2024 5:32 AM CDT SCAN-CARDIAC STRIP 08/15/2024 4: [address] HEAD BRAIN WO Routine 08/15/2024 3:42 AM CDT GLUCOSE METER Timed 08/14/2024 11:36 PM CDT SCAN-CARDIAC STRIP 08/14/2024 8: 00 PM CDT ARTERIAL LINE Routine 08/14/2024 3:32 PM CDT ARTERIAL LINE Routine 08/14/2024 3:32 PM CDT ARTERIAL LINE Routine 08/14/2024 3:32 PM CDT ARTERIAL LINE Routine 08/14/2024 3:32 PM CDT ARTERIAL LINE Routine 08/14/2024 3:32 PM CDT EXTRA TUBE LIGHT GREEN Today 08/14/2024 2:41 PM CDT SODIUM Today 08/14/2024 2:41 PM CDT POTASSIUM Early AM 08/14/2024 2:41 PM CDT PHOSPHORUS Early AM 08/14/2024 2:41 PM CDT GLUCOSE METER Timed 08/14/2024 2:25 PM CDT MR HEAD BRAIN INTRAOPERATIVE WWO Routine 08/14/2024 1:49 PM CDT Brain tumor (HC) PATH TISSUE EXAM Today 08/14/2024 9:12 AM CDT CRANIOTOMY REMOVAL TUMOR STEALTH GUIDED Class E Urgent: within 7 days 08/14/2024 6:45 AM CDT Brain tumor (HC) Case Notes SUPINE, iMRI, stealth MRI, microscope. GLUCOSE METER Timed 08/14/2024 5:55 AM CDT SODIUM STAT 08/14/2024 12:41 AM CDT GLUCOSE METER Timed 08/13/2024 8:58 PM CDT MR HEAD BRAIN WWO Routine 08/13/2024 8:0 7 PM CDT Brain tumor (HC) GLUCOSE METER Timed 08/13/2024 11:41 AM CDT TYPE & SCREEN Today 08/13/2024 10:44 AM CDT PROTIME-INR Today 08/13/2024 10:44 AM CDT SODIUM Early AM 08/13/2024 7:27 AM CDT CREATININE Early AM 08/13/2024 7:27 AM CDT POTASSIUM Early AM 08/13/2024 7:27 AM CDT PHOSPHORUS Early AM 08/13/2024 7:27 AM CDT GLUCOSE METER Timed 08/13/2024 6:01 AM CDT GLUCOSE METER Timed 08/12/2024 10:10 PM CDT GLUCOSE METER Timed 08/12/2024 4:17 PM CDT GLUCOSE METER Timed 08/12/2024 12:56 PM CDT GLUCOSE METER Timed 08/12/2024 8:13 AM CDT SODIUM Early AM 08/12/2024 8:10 AM CDT POTASSIUM Early AM 08/12/2024 8:10 AM CDT PHOSPHORUS Early AM 08/12/2024 8:10 AM CDT MAGNESIUM Early AM 08/12/2024 8:10 AM CDT GLUCOSE METER Timed 08/11/2024 9:00 PM CDT SODIUM Timed 08/11/2024 4:48 PM CDT GLUCOSE METER Timed 08/11/2024 2:01 PM CDT SCAN CORRESP-LABORATORY RESULTS 08/11/2024 1:41 PM CDT SCAN CORRESP-IMAGING 08/11/2024 1:41 PM CDT SODIUM Timed 08/11/2024 8:28 AM CDT GLUCOSE METER Timed 08/11/2024 8:03 AM CDT MAGNESIUM BENITO 08/11/2024 5:16 AM CDT POTASSIUM Early AM 08/11/2024 5:16 AM CDT PHOSPHORUS Early AM 08/11/2024 5:16 AM CDT SODIUM Timed 08/11/2024 12:45 AM CDT GLUCOSE METER Timed 08/10/2024 4:01 PM CDT SCAN-CARDIAC STRIP 08/10/2024 3: 30 PM CDT SODIUM Timed 08/10/2024 2:49 PM CDT MAGNESIUM Timed 08/10/2024 2:49 PM CDT TSH BENITO 08/10/2024 4:43 AM CDT MAGNESIUM Early AM 08/10/2024 4:43 AM CDT PHOSPHORUS Early AM 08/10/2024 4:43 AM CDT POTASSIUM Early AM 08/10/2024 4:43 AM CDT SODIUM Timed 08/10/2024 4:43 AM CDT GLUCOSE METER Timed 08/10/2024 3:18 AM CDT SCAN-CARDIAC STRIP 08/09/2024 11 :59 PM CDT UA W/ SEDIMENT EXAM REFLEXED PER CRITERIA Today 08/09/2024 11:55 PM CDT SODIUM Timed 08/09/2024 10:41 PM CDT SCAN-CARDIAC STRIP 08/09/2024 7: 30 PM CDT MAGNESIUM Timed 08/09/2024 3:51 PM CDT SODIUM Timed 08/09/2024 3:51 PM CDT GLUCOSE METER Timed 08/09/2024 10:08 AM CDT SODIUM Timed 08/09/2024 9:53 AM CDT SCAN-CARDIAC STRIP 08/09/2024 7: 50 AM CDT MR HEAD BRAIN WWO STAT 08/09/2024 4:1 4 AM CDT XR CHEST 1 VIEW PORTABLE STAT 08/09/2024 3:02 AM CDT EKG 12 LEAD STAT 08/09/2024 3:00 AM CDT TYPE & SCREEN Today 08/09/2024 3:00 AM CDT CBC WITH AUTO DIFFERENTIAL STAT 08/09/2024 3:00 AM CDT PROTIME-INR STAT 08/09/2024 3:00 AM CDT HEPATIC FUNCTION PANEL STAT 08/09/2024 3:00 AM CDT CALCIUM IONIZED HOSPITAL DRAW ONLY STAT 08/09/2024 3:00 AM CDT PHOSPHORUS STAT 08/09/2024 3:00 AM CDT MAGNESIUM STAT 08/09/2024 3:00 AM CDT BLOOD GAS,VENOUS STAT 08/09/2024 3:00 AM CDT CBC WITH AUTO DIFFERENTIAL STAT 08/09/2024 3:00 AM CDT BASIC METABOLIC PANEL STAT 08/09/2024 3:00 AM CDT SCAN-CARDIAC STRIP 08/09/2024 12 :00 AM CDT from Last 3 Months Results * CT HEAD BRAIN WO (09/23/2024 12:00 AM CDT) Only the most recent of2 resultswithin the time period is included. Anatomical Region Laterality Modality HEAD, BRAIN Computed Tomogra phy us Nalini ANGULO CT Final Re sult * (ABNORMAL) GLUCOSE METER (08/17/2024 3:28 AM CDT) Only the most recent of23 resultswithin the time period is included. GLUCOSE METER 102(H) 65 - 100 mg/dL 08/17/2024 3:29 AM CDT [facility] Blood BLOOD SPECIMEN / Unknown 08/17/2024 3:28 AM CDT 08/17/2024 3:29 AM CDT Raciel Ellison MD CHEMISTRY Final Result Performing Organization Address [facility] de Phone Number [facility] [address] [place] [address], [place] * (ABNORMAL) WHITE BLOOD COUNT (08/16/2024 10:36 AM CDT) WHITE BLOOD COUNT 14.6(H) 4.5 - 11.0 thou/cu mm 08/16/2024 11:03 AM CDT [facility] NRBC 0.0 % 08/16/2024 11:03 AM CDT [facility] ABS NRBC 0.0 thou /cu mm 08/16/2024 11:03 AM CDT [facility] Blood BLOOD SPECIMEN / Unknown Venipuncture / Unknown 08/16/2024 10:36 AM CDT 08/16/2024 10:55 AM CDT Samantha Bernal NP HEMATOLOGY Final Re sult Performing Organization Address [facility] Co de Phone Number [facility] [address] [address], [place] * PHOSPHORUS (08/16/2024 10:36 AM CDT) Only the most recent of8 resultswithin the time period is included. PHOSPHORUS 2.7 2.5 - 4.5 mg/dL 08/16/2024 11:22 AM CDT [facility] Blood BLOOD SPECIMEN / Unknown Venipuncture / Unknown 08/16/2024 10:36 AM CDT 08/16/2024 10:55 AM CDT Jorge Alberto Wilson MD CHEMISTRY Final Result Performing Organization Address City/[facility]/ZIP Co de Phone Number [facility] [address] [place] [address], [place] * MAGNESIUM (08/16/2024 10:36 AM CDT) Only the most recent of8 resultswithin the time period is included. MAGNESIUM 2.1 1.6 - 2.4 mg/dL 08/16/2024 1:17 PM CDT [facility] Blood BLOOD SPECIMEN / Unknown Venipuncture / Unknown 08/16/2024 10:36 AM CDT 08/16/2024 10:55 AM CDT Raciel Ellison MD CHEMISTRY Final Result Performing Organization Address City/[facility]/ZIP Co de Phone Number [facility] [address] [place] [address], [place] * (ABNORMAL) BASIC METABOLIC PANEL (08/16/2024 10:36 AM CDT) Only the most recent of3 resultswithin the time period is included. SODIUM 139 136 - 145 mmol/L 08/16/2024 11:22 AM CDT [facility] POTASSIUM 4.4 3.5 - 5.1 mmol/L 08/16/2024 11:22 AM CDT [facility] CHLORIDE 104 98 - 107 mmol/L 08/16/2024 11:22 AM CDT [facility] CO2,TOTAL 22 22 - 29 mmol/L 08/16/2024 11:22 AM CDT [facility] ANION GAP 13 5 - 18 08/16/2024 11:22 AM T [facility] GLUCOSE 104(H) 70 - 99 mg/dL 08/16/2024 11:22 AM CDT [facility] CALCIUM 8.9 8.8 - 10.4 mg/dL 08/16/2024 11:22 AM T [facility] Comment: Reference ranges for this test were updated on 01/08/2024 to reflect our healthy population more accurately. Reference range changes are not retroactively applied to results, but previous results using the same methodology can be interpreted in the context of the new reference range. BUN 15 8 - 23 mg/dL 08/16/2024 11:22 AM T [facility] CREATININE 0.64(L) 0.70 - 1.20 mg/dL 08/16/2024 11:22 AM [facility] BUN/CREAT RATIO 23(H) 10 - 20 11:22 AM T [facility] eGFR >90 >90 mL/min/1. 73m2 08/16/2024 11:22 AM [facility] Comment:As of 2021, eG FR is calculated by the CKD-EPI creatinine equation without race adjustment. eGFR can be influenced by muscle mass, exercise, and diet. The reported eGFR is an estimation only and is only applicable if the renal function is stable. Blood BLOOD SPECIMEN / Unknown Venipuncture / Unknown 08/16/2024 10:36 AM CDT 08/16/2024 10:55 AM CDT us Samantha Bernal NP CHEMISTRY Final Re sult [facility] [address] [place] [address], [place] * (ABNORMAL) CBC with Platelets no Differential (08/15/2024 5:48 AM CDT) WHITE BLOOD COUNT 15.5(H) 4.5 - 11.0 thou/cu mm 08/15/2024 6:01 AM CDT [facility] RED BLOOD COUNT 4.61 4.30 - 5.90 mil/cu mm 08/15/2024 6:01 AM CDT [facility] HEMOGLOBIN 14.0 13.5 - 17.5 g/dL 08/15/2024 6:01 AM T [facility] HEMATOCRIT 42.0 37.0 - 53.0 % 08/15/2024 6:01 AM CDT [facility] MCV 91 80 - 100 fL 08/15/2024 6:01 AM T [facility] MCH 30.4 26.0 - 34.0 pg 08/15/2024 6:01 AM T [facility] MCHC 33.3 32.0 - 36.0 g/dL 08/15/2024 6:01 AM T [facility] RDW 13.6 11.5 - 15.5 % 08/15/2024 6:01 AM T [facility] PLATELET COUNT 206 140 - 440 thou/cu mm 08/15/2024 6:01 AM T [facility] MPV 9.4 6.5 - 11.0 fL 08/15/2024 6:01 AM [facility] NRBC 0.0 % 08/15/2024 6:01 AM T [facility] ABS NRBC 0.0 thou /cu mm 08/15/2024 6:01 AM T [facility] Blood BLOOD SPECIMEN / Unknown Venipuncture / Unknown 08/15/2024 5:48 AM CDT 08/15/2024 5:56 AM CDT us Nalini ANGULO HEMATOLOGY Final Re sult [facility] [address] [place] [address], * SCAN-CARDIAC STRIP (08/15/2024 4:00 AM CDT) us Scanner OTHER Final Result * SCAN-CARDIAC STRIP (08/14/2024 8:00 PM CDT) us Scanner OTHER Final Result * HCHG TUBING PR1, HCHG TUBING PR20, HCHG DRSG PR1, HCHG DRSG PR5, HCHG KIT PR5 (08/14/2024 3:32 PM CDT) Narrative Larisa Patterson MD - 08/14/2024 3:32 PM CDT Larisa Patterson MD 08/14/2024 3:33 PM Arterial Line Patient location during procedure: OR Indications: lab sampling and monitoring Staffing Preanesthetic Checklist Completed: patient identified, risks and benefits discussed, consent obtained and timeout performed Arterial Line Patient position: supine. Comment:. Laterality: left Site: radial Securement/dressing: Biopatch applied, dressing applied. Comment: Needle Catheter size: 20 G. Comment:. Events: no complications. us Larisa Patterson MD ANESTHESIA PX NOTE ORDERABLE S Final Result * EXTRA TUBE LIGHT GREEN (08/14/2024 2:41 PM CDT) Blood BLOOD SPECIMEN / Unknown Non-Lab Venipuncture / Unknown 08/14/2024 2:41 PM CDT 08/14/2024 2:41 PM CDT us Warren Sierra MD LABORATORY Final Result [facility] [address] [place] [address], * SODIUM (08/14/2024 2:41 PM CDT) Only the most recent of12 resultswithin the time period is included. SODIUM 140 136 - 145 mmol/L 08/14/2024 3:42 PM CDT [facility] Blood BLOOD SPECIMEN / Unknown Non-Lab Venipuncture / Unknown 08/14/2024 2:41 PM CDT 08/14/2024 2:41 PM CDT us Jorge Alberto Wilson MD CHEMISTRY Final Result Performing Organization Address City/[facility]/ZIP Co de Phone Number [facility] [address] [place] [address], [place] * POTASSIUM (08/14/2024 2:41 PM CDT) Only the most recent of5 resultswithin the time period is included. POTASSIUM 4.3 3.5 - 5.1 mmol/L 08/14/2024 3:42 PM CDT [facility] Blood BLOOD SPECIMEN / Unknown Non-Lab Venipuncture / Unknown 08/14/2024 2:41 PM CDT 08/14/2024 2:41 PM CDT Warren Sierra MD CHEMISTRY Final Result Performing Organization Address [facility] Co de Phone Number [facility] [address] [place] [address], [place] * MR HEAD BRAIN INTRAOPERATIVE WWO (08/14/2024 1:49 PM CDT) Anatomical Region Laterality Modality BRAIN Magnetic Resonan ce 08/14/2024 3:17 PM CDT Narrative 08/14/2024 3:17 PM CDT For Patients: As a result of the Century Cures Act, medical imaging exams and procedure reports are released immediately into your electronic medical record. You may view this report before your referring provider. If you have questions, please contact your health care provider. Indication: Brain tumor. Technique: T1 precontrast and postcontrast as well as axial diffusion imaging of the brain. Comparison: MRI brain 08/13/2024. Findings: Postsurgical changes secondary to interval left frontotemporal craniotomy for extra-axial tumor resection. [id number] pneumocephalus left cerebellar convexity. Thin intrinsic T1 shortening along the resection cavity margin, compatible with blood products and/or hemostatic agent. Interval gross total resection of enhancing dural-based neoplasm along the left sphenoid wing and left frontotemporal convexity. No nodular enhancement to suggest residual tumor. Small diffusion restriction adjacent to the resection cavity, compatible with postoperative sequela. No large or concerning areas of diffusion restriction. Impression: 1. Intraoperative MRI demonstrates interval gross total resection of dural-based neoplasm at the left cerebral convexity. 2. Small diffusion restriction adjacent to the resection cavity, compatible with postoperative sequela. No large or concerning areas of diffusion restriction. Dictated by Marquez Pepper MD @ 08/14/2024 3:17:31 PM (Electronically Signed) Procedure Note Marquez Pepper MD - 08/14/2024 For Patients: As a result of the Cures Act, medical imagingexams and procedure reports are released immediately into your electronicmedical record. You may view this report before your referring provider.If you have questions, please contact your health care provider. Indication: Brain tumor. Technique: T1 precontrast and postcontrast as well as axial diffusion imaging of thebrain. Comparison: MRI brain 08/13/2024. Findings: Postsurgical changes secondary to interval left frontotemporal craniotomyfor extra-axial tumor resection. [id number] pneumocephalus leftcerebellar convexity. Thin intrinsic T1 shortening along the resectioncavity margin, compatible with blood products and/or hemostatic agent. Interval gross total resection of enhancing dural-based neoplasm along theleft sphenoid wing and left frontotemporal convexity. No nodularenhancement to suggest residual tumor. Small diffusion restriction adjacent to the resection cavity, compatiblewith postoperative sequela. No large or concerning areas of diffusionrestriction. Impression: 1. Intraoperative MRI demonstrates interval gross total resection ofdural-based neoplasm at the left cerebral convexity. 2. Small diffusion restriction adjacent to the resection cavity,compatible with postoperative sequela. No large or concerning areas ofdiffusion restriction. Dictated by Marquez Pepper MD @ 08/14/2024 3:17:31 PM (Electronically Signed) Courtney Morgan NP MR Final Result * PATH TISSUE EXAM (08/14/2024 9:12 AM CDT) Case Report Pathology Report Case: [id number] Authorizing Provider: Blade Jonas MD Collected: 08/14/202412 Ordering Location: [facility] Received: 08/14/2024 0915 Hospital Pathologist: Daniel Lester MD Specimens: A) - Tissue, Other, left brain tumor B) - Tissue, Other, left brain tumor - additional 08/15/2024 2:20 PM CDT [facility] Final Diagnosis A,B) BRAIN, ANTERIOR LEFT TEMPORAL LOBE TUMOR, RESECTION: 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 These features are sufficient to raise the grade of this tumor to TRAINING AND DEVELOPMENT SPECIALIST WHO grade 2 (atypical meningioma). 08/15/2024 2:20 PM CDT [facility] Clinical Information Anterior left temporal lobe brain tumor. 08/15/2024 2:20 PM CDT [facility] Gross Description A) Received fresh labeled with the patient's name and left brain tumor, is a 1.3 x 1 x 0.4 cm aggregate of multiple irregular ramos-brown, mclean soft to rubbery tissue curettings. Cytologic preparations are made (2 H&E-stain slides). The remaining specimen is wrapped and entirely submitted in 1 cassette. Time and date in formalin: 09 on 08/14/2024 LDW 08/14/2024 B) Received fresh labeled with the patient's name and left brain tumor-additional , is a 5.5 x 4 x 1.8 cm aggregate of irregular mclean-ramos and hemorrhagic soft to rubbery tissue curettings with focally necrotic appearing cut surfaces. 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 Time and date in formalin: 1222 on 08/14/2024 LDW 08/14/2024 08/15/2024 2:20 PM CDT [facility] Intraoperative Consultation A) BRAIN, ANTERIOR LEFT TEMPORAL LOBE TUMOR, EXCISION, INTRAOPERATIVE CONSULTATION WITH CYTOLOGY PREPARATIONS (2 SMEARS): 1. Favor meningioma; some features of histologic atypia present Daniel Lester MD, 08/14/2024 9:29 AM Intraoperative consultation, which may have included frozen section preparation, gross specimen examination, and/or cytology touch imprints/smears, was performed by a pathologist during the surgical procedure. This testing was performed at: [facility] [address], [place] [address] 08/15/2024 2:20 PM CDT [facility] Microscopic Description The final diagnosis is based on microscopic examination of appropriate sections of all specimens. 08/15/2024 2:20 PM CDT [facility] Additional Information Interpreted at [facility] - [address], [place] [address] 08/15/2024 2:20 PM CDT [facility] Tissue TISSUE SPECIMEN / Unknown 08/14/2024 9:12 AM CDT 08/14/2024 9:15 AM CDT Tissue specimen (specimen) TISSUE SPECIMEN / Unknown 08/14/2024 10:44 AM CDT 08/14/2024 12:19 PM CDT us Blade Jonas MD PATHOLOGY/CYTOLOGY Final Result [facility] [address] [place] [id number], * MR HEAD BRAIN WWO (08/13/2024 8:07 PM CDT) Only the most recent of2 resultswithin the time period is included. Anatomical Region Laterality Modality BRAIN, HEAD Magnetic Resonan ce 08/14/2024 10:2 8 AM CDT Narrative 08/14/2024 10:28 AM CDT For Patients: As a result of the 21st Century Cures Act, medical imaging exams and procedure reports are released immediately into your electronic medical record. You may view this report before your referring provider. If you have questions, please contact your health care provider. Indication: Brain tumor. Technique: Multiplanar multisequence MR imaging of the brain prior to and following intravenous administration of 20 mL Clariscan for purposes of surgical planning. Comparison: MRI brain 08/09/2024. Findings: Fiducial markers are in place. Heterogeneously enhancing dural-based mass along the left greater sphenoid wing and left frontotemporal convexity with extension cephalad into the left sylvian fissure measuring 5.2 x 5.7 x 5.0 cm (TR/CC/AP). Extensive perilesional edema the left cerebral hemisphere contributing to severe left lateral ventricular effacement, 12 mm rightward midline shift, and left uncal herniation with effacement of the ambient cistern. Impression: MRI for purposes of surgical planning. Large dural-based lesion along the left greater sphenoid wing and left frontotemporal convexity with extension into the left sylvian fissure. Extensive perilesional edema contributes to 12 mm rightward midline shift. Dictated by Marquez Pepper MD @ 08/14/2024 10:28:54 AM (Electronically Signed) Procedure Note Marquez Pepper MD - 08/14/2024 For Patients: As a result of the Cures Act, medical imagingexams and procedure reports are released immediately into your electronicmedical record. You may view this report before your referring provider.If you have questions, please contact your health care provider. Indication: Brain tumor. Technique: Multiplanar multisequence MR imaging of the brain prior to and followingintravenous administration of 20 mL Clariscan for purposes of surgicalplanning. Comparison: MRI brain 08/09/2024. Findings: Fiducial markers are in place. Heterogeneously enhancing dural-based mass along the left greater sphenoidwing and left frontotemporal convexity with extension cephalad into theleft sylvian fissure measuring 5.2 x 5.7 x 5.0 cm (TR/CC/AP). Extensiveperilesional edema the left cerebral hemisphere contributing to severeleft lateral ventricular effacement, 12 mm rightward midline shift, andleft uncal herniation with effacement of the ambient cistern. Impression: MRI for purposes of surgical planning. Large dural-based lesion along theleft greater sphenoid wing and left frontotemporal convexity withextension into the left sylvian fissure. Extensive perilesional edemacontributes to 12 mm rightward midline shift. Dictated by Marquez Pepper MD @ 08/14/2024 10:28:54 AM (Electronically Signed) Courtney Main Morgan [employer] DEVELOPER MR Final Result * TYPE & SCREEN (08/13/2024 10:44 AM CDT) Only the most recent of2 resultswithin the time period is included. ABORH A Rh Positive 08/13/2024 11:51 AM CDT [facility] ANTIBODY SCREEN Negative Negative 08/13/2024 11:51 AM CDT [facility] SPECIMEN EXPIRATION DATE/TIME 08/16/24 23:59 08/13/2024 11:51 AM CDT [facility] Blood BLOOD SPECIMEN / Unknown Butterfly / Unknown 08/13/2024 10:44 AM CDT 08/13/2024 11:06 AM CDT [facility] [place] [facility] Final Re sult [facility] [address] [place] [address], * PROTIME-INR (08/13/2024 10:44 AM CDT) Only the most recent of2 resultswithin the time period is included. INR 1.1 <1.3 08/13/2024 11:27 AM CDT [facility] PROTIME 12.1 10.6 - 12.4 sec 08/13/2024 11:27 AM CDT [facility] Blood BLOOD SPECIMEN / Unknown Butterfly / Unknown 08/13/2024 10:44 AM CDT 08/13/2024 11:06 AM CDT Narrative [facility] - 08/13/2024 11:27 AM CDT Therapeutic Range 2.0-3.0 for most anticoagulated patients 2.5-3.5 or 4.0 for high risk patients The INR is only used for patients on stable oral anticoagulant therapy. It makes no significant contribution to the diagnosis or treatment of patients whose Protime is prolonged for other reasons. INR results are increased when heparin levels exceed 1.0 U/mL, which corresponds to an aPTT >125 seconds if the patient is on UFH. Nalini ANGULO HEMATOLOGY Final Re sult Performing Organization Address [facility] de Phone Number [facility] [address] [address], [place] * CREATININE (08/13/2024 7:27 AM CDT) eGFR >90 >90 mL/min/1.7 3m2 08/13/2024 7:57 AM CDT [facility] Comment:As of 2021, eG FR is calculated by the CKD-EPI creatinine equation without race adjustment. eGFR can be influenced by muscle mass, exercise, and diet. The reported eGFR is an estimation only and is only applicable if the renal function is stable. CREATININE 0.83 0.70 - 1.20 mg/dL 08/13/2024 7:57 AM CDT [facility] Blood BLOOD SPECIMEN / Unknown Venipuncture / Unknown 08/13/2024 7:27 AM CDT 08/13/2024 7:34 AM CDT Warren Sierra MD CHEMISTRY Final Result Performing Organization Address [facility] Phone Number [facility] [address] [address], [place] * SCAN CORRESP-LABORATORY RESULTS (08/11/2024 1:41 PM CDT) Narrative 08/11/2024 1:41 PM CDT Ordered by an unspecified provider. us Other Clinical Staff OTHER Final Resul t * SCAN CORRESP-IMAGING (08/11/2024 1:41 PM CDT) Anatomical Region Laterality Modality Other Narrative 08/11/2024 1:41 PM CDT Ordered by an unspecified provider. Other Clinical Staff OTHER Final Resul t * SCAN-CARDIAC STRIP (08/10/2024 3:30 PM CDT) us Scanner OTHER Final Result * (ABNORMAL) TSH FOR ADD ON (08/10/2024 4:43 AM CDT) TSH 0.13(L) 0.27 - 4.20 uIU/mL 08/10/2024 9:43 AM CDT [facility] Blood BLOOD SPECIMEN / Unknown Venipuncture / Unknown 08/10/2024 4:43 AM CDT 08/10/2024 4:56 AM CDT Narrative [facility] - 08/10/2024 9:43 AM CDT In Adults, TSH values between 5.00 and 10.00 uIU/ml do not necessarily indicate the presence of Hypothyroidism. Correlation with clinical findings such as presence of goiter and/or Thyroperoxidase (TPO) Antibody may be helpful. For more information please refer to JEEVAN 2004; 291: 228-238. us Warren Sierra MD CHEMISTRY Final Result [facility] [address] [place] [address], * SCAN-CARDIAC STRIP (08/09/2024 11:59 PM CDT) us Scanner OTHER Final Result * (ABNORMAL) Urinalysis W Reflex Microscopic if Positive (08/09/2024 11:55 PM CDT) COLOR Yellow Yellow Color 08/10/2024 12:10 AM CDT [facility] CLARITY Clear Clear Clarity 08/10/2024 12:10 AM CDT [facility] SPECIFIC GRAVITY,URINE 1.020 1.010, 1.015, 1.020, 1.025 08/10/2024 12:10 AM CDT [facility] PH,URINE 6.0 6.0, 7.0, 8.0, 5.5, 6.5, 7.5, 8.5 08/10/2024 12:10 AM CDT [facility] UROBILINOGEN, QUALITATIVE Normal Normal EU/dl 08/10/2024 12:10 AM CDT [facility] PROTEIN, URINE Negative Negative mg/dL 08/10/2024 12:10 AM CDT [facility] GLUCOSE, URINE Negative Negative mg/dL 08/10/2024 12:10 AM CDT [facility] KETONES,URINE Trace(A) Negative mg/dL 08/10/2024 12:10 AM CDT [facility] BILIRUBIN,URI NE Negative Negative 08/10/2024 12:10 AM CDT [facility] OCCULT BLOOD,URINE Negative Negative 08/10/2024 12:10 AM CDT [facility] NITRITE Negative Negative 08/10/2024 12:10 AM CDT [facility] LEUKOCYTE ESTERASE Negative Negative 08/10/2024 12:10 AM CDT [facility] Urine URINE SPECIMEN / Unknown Non-Blood / Unknown 08/09/2024 11:55 PM CDT 08/10/2024 12:00 AM CDT us Robel Leyva MD URINE Tiffany l Result [facility] [address] [place] [address], [place] * SCAN-CARDIAC STRIP (08/09/2024 7:30 PM CDT) us Scanner OTHER Final Result * SCAN-CARDIAC STRIP (08/09/2024 7:50 AM CDT) us Scanner OTHER Final Result * XR CHEST 1 VIEW PORTABLE (08/09/2024 3:02 AM CDT) Anatomical Region Laterality Modality HEART, THORAX, CHEST Digital Rad iography 08/09/2024 3:12 AM CDT Impressions 08/09/2024 3:12 AM CDT No evidence of acute pulmonary process. Dictated by Raciel Sullivan MD @ 08/09/2024 3:12:09 AM (Electronically Signed) Narrative 08/09/2024 3:12 AM CDT For Patients: As a result of the Cures Act, medical imaging exams and procedure reports are released immediately into your electronic medical record. You may view this report before your referring provider. If you have questions, please contact your health care provider. INDICATION: Shortness of breath. TECHNIQUE: Chest 1 view. COMPARISON: CT chest, abdomen, and pelvis 10/14/2020. FINDINGS: Cardiovascular and mediastinum: Heart size and vasculature are normal in caliber and appearance. Lungs and pleural spaces: Lungs are clear. No sign of infiltrate or mass. No sign of pleural effusion. No pneumothorax. Bones and soft tissues: No significant findings. Procedure Note Raciel Sullivan MD - 08/09/2024 For Patients: As a result of the Cures Act, medical imagingexams and procedure reports are released immediately into your electronicmedical record. You may view this report before your referring provider.If you have questions, please contact your health care provider. INDICATION: Shortness of breath. TECHNIQUE: Chest 1 view. COMPARISON: CT chest, abdomen, and pelvis 10/14/2020. FINDINGS: Cardiovascular and mediastinum: Heart size and vasculature are normal incaliber and appearance. Lungs and pleural spaces: Lungs are clear. No sign of infiltrate or mass.No sign of pleural effusion. No pneumothorax. Bones and soft tissues: No significant findings. IMPRESSION: No evidence of acute pulmonary process. Dictated by Raciel Sullivan MD @ 08/09/2024 3:12:09 AM (Electronically Signed) us Robel Leyva MD GENERAL IMAGING Tiffany l Result * 12 Lead EKG (08/09/2024 3:00 AM CDT) Interpretation Normal sinus rhythm Right bundle branch block Inferior infarct , age undetermined Abnormal ECG No previous ECGs available BEYOND NOW Ventricular Rate 75 BPM BEYOND NOW Atrial Rate 75 BPM BEYOND NOW P-R Interval 178 ms BEYOND NOW QRS Duration 156 ms BEYOND NOW QT 430 ms BEYOND NOW QTc 480 ms BEYOND NOW P Seaside 52 degrees BEYOND NOW R Seaside -5 degrees BEYOND NOW T Seaside 30 degrees BEYOND NOW 08/09/2024 3:00 AM CDT 08/09/2024 8:11 PM CDT us Robel Leyva MD EKG ORD Tiffany l Result BEYOND NOW [place], [place] * CBC WITH AUTO DIFFERENTIAL (08/09/2024 3:00 AM CDT) WHITE BLOOD COUNT 7.8 4.5 - 11.0 thou/cu mm 08/09/2024 3:12 AM CDT [facility] RED BLOOD COUNT 4.91 4.30 - 5.90 mil/cu mm 08/09/2024 3:12 AM CDT [facility] HEMOGLOBIN 14.9 13.5 - 17.5 g/dL 08/09/2024 3:12 AM CDT [facility] HEMATOCRIT 43.2 37.0 - 53.0 % 08/09/2024 3:12 AM CDT [facility] MCV 88 80 - 100 fL 08/09/2024 3:12 AM CDT [facility] MCH 30.3 26.0 - 34.0 pg 08/09/2024 3:12 AM CDT [facility] MCHC 34.5 32.0 - 36.0 g/dL 08/09/2024 3:12 AM CDT [facility] RDW 12.9 11.5 - 15.5 % 08/09/2024 3:12 AM CDT [facility] PLATELET COUNT 230 140 - 440 thou/cu mm 08/09/2024 3:12 AM CDT [facility] MPV 9.2 6.5 - 11.0 fL 08/09/2024 3:12 AM CDT [facility] NRBC 0.0 % 08/09/2024 3:12 AM CDT [facility] ABS NRBC 0.0 thou /cu mm 08/09/2024 3:12 AM CDT [facility] % NEUT 63.3 % 08/09/2024 3:12 AM CDT [facility] % LYMPH 22.4 % 08/09/2024 3:12 AM CDT [facility] % MONO 10.1 % 08/09/2024 3:12 AM CDT [facility] % EOS 3.3 % 08/09/2024 3:12 AM CDT [facility] % BASO 0.6 % 08/09/2024 3:12 AM CDT [facility] % IMMATURE GRAN (METAS,MYELOS,N[place] OS) 0.3 % 08/09/2024 3:12 AM CDT [facility] ABSOLUTE NEUTROPHILS 5.0 1.7 - 7.0 thou/cu mm 08/09/2024 3:12 AM CDT [facility] ABSOLUTE LYMPHOCYTES 1.8 0.9 - 2.9 thou/cu mm 08/09/2024 3:12 AM CDT [facility] ABSOLUTE MONOCYTES 0.8 <0.9 thou/cu mm 08/09/2024 3:12 AM CDT [facility] ABSOLUTE EOSINOPHILS 0.3 <0.5 thou/cu mm 08/09/2024 3:12 AM CDT [facility] ABSOLUTE BASOPHILS 0.1 <0.3 thou/cu mm 08/09/2024 3:12 AM CDT [facility] ABSOLUTE IMMATURE GRANULOCYTES(MET ,MYELOS,PROS) 0.0 <0.3 thou/cu mm 08/09/2024 3:12 AM CDT [facility] Blood BLOOD SPECIMEN / Unknown Venipuncture / Unknown 08/09/2024 3:00 AM CDT 08/09/2024 3:08 AM CDT Robel Leyva MD HEMATOLOGY Tiffany l Result [facility] [address] [place] [address], [place] * (ABNORMAL) BLOOD GAS,VENOUS (08/09/2024 3:00 AM CDT) PH, VENOUS 7.46(H) 7.32 - 7.43 08/09/2024 3:12 AM CDT [facility] PCO2, VENOUS 33(L) 41 - 51 mmHg 08/09/2024 3:12 AM CDT [facility] PO2, VENOUS 86(H) 35 - 40 mmHg 08/09/2024 3:12 AM CDT [facility] HCO3,VENOUS 24 22 - 29 mmol/L 08/09/2024 3:12 AM CDT [facility] BASE EXCESS, VENOUS, POCT 0.3 -2.0 - 3.0 08/09/2024 3:12 AM CDT [facility] O2 SATURATION, VENOUS 96(H) 70 - 75 % 08/09/2024 3:12 AM CDT [facility] PATIENT TEMPERATURE 37.0 Degrees C 08/09/2024 3:12 AM CDT [facility] Blood VENOUS BLOOD SPECIMEN / Unknown Venipuncture / Unknown 08/09/2024 3:00 AM CDT 08/09/2024 3:08 AM CDT Robel Leyva MD CHEMISTRY Tiffany l Result [facility] [address] [place] [address], [place] * (ABNORMAL) CALCIUM IONIZED HOSPITAL DRAW ONLY (08/09/2024 3:00 AM CDT) CALCIUM,IONIZE D 1.08(L) 1.15 - 1.27 mmol/L 08/09/2024 3:13 AM CDT [facility] Blood BLOOD SPECIMEN / Unknown Venipuncture / Unknown 08/09/2024 3:00 AM CDT 08/09/2024 3:08 AM CDT us Robel Leyva MD CHEMISTRY Tiffany l Result [facility] [address] [place] [id number], * Hepatic Function Panel (08/09/2024 3:00 AM CDT) ALBUMIN 4.2 4.0 - 4.9 g/dL 08/09/2024 3:31 AM CDT [facility] PROTEIN,TOTAL 7.1 6.0 - 8.0 g/dL 08/09/2024 3:31 AM CDT [facility] BILIRUBIN,TOTAL 0.6 0.0 - 1.2 mg/dL 08/09/2024 3:31 AM CDT [facility] BILIRUBIN,DIRECT 0.2 0.0 - 0.2 mg/dL 08/09/2024 3:31 AM CDT [facility] BILIRUBIN,INDIRE CT 0.4 0.2 - 0.8 mg/dL 08/09/2024 3:31 AM CDT [facility] ALK PHOSPHATASE 69 40 - 129 IU/L 08/09/2024 3:31 AM CDT [facility] ALT (SGPT) 21 10 - 50 IU/L 08/09/2024 3:31 AM CDT [facility] AST (SGOT) 23 10 - 50 IU/L 08/09/2024 3:31 AM CDT [facility] Blood BLOOD SPECIMEN / Unknown Venipuncture / Unknown 08/09/2024 3:00 AM CDT 08/09/2024 3:08 AM CDT us Robel Leyva MD CHEMISTRY Tiffany l Result [facility] [address] [place] [address], * SCAN-CARDIAC STRIP (08/09/2024 12:00 AM CDT) Narrative 08/09/2024 12:00 AM CDT Ordered by an unspecified provider. us Other Clinical Staff OTHER Final Resul t from Last 3 Months Insurance [employer] [place] [place] BLUE MR PB ONLY MEDICARE PART B HB ONLY [employer] [place] [place] HB ONLY MEDICARE PART A HB ONLY Advance Directives Documents on File Type Date Recorded Patient Hazmat Cdl A Driver Expl anation Healthcare Directive 08/13/2024 025 * Full Code (Latest Code Status on File) Date Activated Date Inactivated Comments 08/09/2024 2:44 AM 08/17/2024 3:08 PM Question Answer Comments Code Status Discussion: Unable to Assess Preferences, Provider to review later Care Teams Director Of Analytical Development Relationship Specialty Start Date End Date Patricia Moffett MD [address] [place] [address] PCP - General Family Practice 11/01/20 Mila Sanabria, RN [address] [place], [place] [id number] Software Systems Architect Registered Nurse 08/19/24 Shira Montejo [address] [place] [address] 08/20/24
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
[2024-09-30 08:20] LABS: Creatinine, Point-of-Care* 0.8 mg/dl (0.6-1.3)
--- NOTE | 2024-09-30 08:22 | CRLHL7_ITS ---
For Patients: As a result of the Century Cures Act, medical imaging exams and procedure reports are released immediately into your electronic medical record. You may view this report before your referring provider. If you have questions, please contact your health care provider. INDICATION: Recent surgery/craniotomy for meningioma on 08/17. New word-finding difficulty. TECHNIQUE: CT head without contrast. COMPARISON: CT head without contrast 09/23/2024. FINDINGS: Ill-defined low-attenuation suggestive of vasogenic edema in the left frontal and temporal lobes is again demonstrated. There is compression of the left lateral ventricle with gjzq-vx-muzha midline shift at the level of the septum pellucidum measuring 7 mm, previously 5 mm. Trace extra-axial fluid measuring 4 mm adjacent to the left frontal parietal craniotomy has decreased. No acute intracranial hemorrhage. No hydrocephalus. Left frontotemporoparietal craniotomy for meningioma resection, as before. No acute or suspicious osseous abnormality. Paranasal sinuses and orbits as imaged are unremarkable. Left scalp soft tissue swelling likely related to recent surgery. No discrete soft tissue fluid collection. IMPRESSION: 1. Mfvw-ms-wbalz midline shift has slightly increased and now measures 7 mm. 2. Vasogenic edema in the left frontal and temporal lobes is similar in appearance. 3. No acute intracranial hemorrhage. Dictated by Gurpreet Valdez MD @ 09/30/2024 9:40:11 AM Please note that all CT scans at this facility use dose modulation, iterative reconstruction, and/or weight-based dosing when appropriate to reduce radiation dose to as low as reasonably achievable. Dictated by: Gurpreet Valdez MD @ 09/30/2024 09:41:23 (Electronically Signed)
[2024-09-30 08:32] LABS: Hematocrit 44.0 % (37.0-53.0); Hemoglobin* 14.6 gm/dL (13.5-17.5); Immature Granulocytes Abs Auto 0.04 K/uL (0.00-0.30); Immature Granulocytes Pct Auto 0.4 %; Mean Corpuscular HGB Conc 33 gm/dL (32-36); Mean Corpuscular Hemoglobin 30 pg (26-34); Mean Corpuscular Volume 91 fL (80-100); RDW Coefficient of Variation % 13.3 % (11.5-15.5); Red Blood Count 4.83 m/uL (4.30-5.90); White Blood Count* 9.84 K/uL (4.50-11.00)
[2024-09-30 08:33] LABS: Lymphocytes Absolute Auto 1.70 K/uL (0.90-2.90); Slide Review Reflex No
[2024-09-30 08:48] LABS: Chloride* 102 mmol/L (96-114)
[2024-09-30 08:49] LABS: Potassium* 4.0 mmol/L (3.6-5.1); Sodium* 138 mmol/L (135-149)
[2024-09-30 08:51] LABS: Blood Urea Nitrogen* 17 mg/dL (7-30); Creatinine* 0.7 mg/dL (0.5-1.5); Est. Creatinine Clearance* 74.37; Estimated Glomerular Filt Rate 99 ml/min
[2024-09-30 08:52] LABS: Anion Gap 9 mEq/L (7-15); Calcium* 9.5 mg/dL (8.4-10.6); Carbon Dioxide* 27 mmol/L (20-32); Glucose* 108 mg/dL (60-115)
[2024-09-30] MEDS: 0.9 % SODIUM CHLORIDE 500 ML 500 ML IV (11:01)
[2024-09-30] MEDS: DEXAMETHASONE 10 MG/ML PF IVP (11:02)
== END 2024-09-30 11:54 | disposition home or self-care (01) ==
PROVIDERS: Emergency Provider Family Medicine; PCP Family Medicine
DX: G93.6 Cerebral edema (principal); R48.8 Other symbolic dysfunctions
CPT/HCPCS: 36415; 70450; 80048; 82565; 85025; 93005; 94761; 96374; 99284; 99285; J1100; J7030

== ENCOUNTER 2024-11-13 10:01 | Outpatient (CLI) | payer MEDICARE, BC, SELFPAY ==
--- NOTE | 2024-11-13 10:15 | CRLHL7_ITS ---
For Patients: As a result of the Century Cures Act, medical imaging exams and procedure reports are released immediately into your electronic medical record. You may view this report before your referring provider. If you have questions, please contact your health care provider. INDICATION: Meningioma, status post resection. COMPARISON: 08/14/2024 and 08/13/2024. TECHNIQUE: Multiplanar T1, T2, FLAIR and diffusion-weighted imaging. Post gadolinium T1 weighted sequences. Gadolinium 20 cc IV FINDINGS: Compared to the previous exams, stable postop changes of left frontotemporal craniotomy for resection of meningioma along the anterior left temporal lobe and extending into the sylvian fissure. There is thickening of the dura underlying the craniotomy flap secondary to postoperative changes. Enhancement along the margins of the resection cavity which likely represents postoperative changes and granulation tissue. Precontrast T1 hyperintensity within the resection cavity likely secondary 2 postoperative blood products. No evidence of new nodular enhancement. T2/FLAIR signal hyperintensity along the margins resection cavity consistent with encephalomalacia gliosis. No midline shift No new abnormal enhancement or enhancing lesions elsewhere. Scattered patchy foci of T2/FLAIR signal hypertensive within the white matter both supra hemispheres consistent with chronic deep white matter small ischemic changes. No restricted diffusion to suggest acute ischemia. No susceptibility artifact of remote hemorrhage. Bilateral orbits are unremarkable. Normal appearing sella. Visualized paranasal sinuses and mastoid air cells are unremarkable. IMPRESSION: 1. No acute intracranial abnormality 2. Stable postop changes of left frontotemporal craniotomy for resection of meningioma. Thickening of the dura underlying the craniotomy flap. Enhancement along the margins of the resection cavity consistent with granulation tissue. No residual recurrent tumor. 3. Surrounding T2/FLAIR signal hyperintensity consistent with encephalomalacia and gliosis 4. No abnormal enhancement elsewhere. 5. No acute intracranial abnormality Dictated by Suresh Sharp MD @ 11/14/2024 3:16:07 PM (Electronically Signed)
== END 2024-11-13 10:02 | disposition home or self-care (01) ==
LOC: MRI 10:01
PROVIDERS: PCP Family Medicine; Visit Provider Physician Assistant
DX: R47.89 Other speech disturbances (principal); G93.89 Other specified disorders of brain; Z98.890 Other specified postprocedural states; Z86.018 Personal history of other benign neoplasm
CPT/HCPCS: 70553; A9575

== ENCOUNTER 2024-12-29 10:00 | Outpatient (CLI) | payer MEDICARE, BC, SELFPAY | END 2024-12-29 10:01 | disposition home or self-care (01) | LOC: NFLDREF 12-30 19:34 | PROVIDERS: PCP Family Medicine; Referring Provider Family Medicine; Visit Provider Family Medicine | DX: I10 Essential (primary) hypertension (principal); E03.9 Hypothyroidism, unspecified; E78.5 Hyperlipidemia, unspecified; Z12.5 Encounter for screening for malignant neoplasm of prostate; G25.81 Restless legs syndrome; N17.9 Acute kidney failure, unspecified; E55.9 Vitamin D deficiency, unspecified | CPT/HCPCS: 80053; 80061; 82728; 83540; 83550; 84443; G0103 ==

== ENCOUNTER 2024-12-31 10:33 | Outpatient (CLI) | payer MEDICARE, BC, SELFPAY | END 2024-12-31 10:34 | disposition home or self-care (01) | LOC: NFLDREF 10:34 | PROVIDERS: PCP Family Medicine; Visit Provider Family Medicine | DX: N17.9 Acute kidney failure, unspecified (principal) | CPT/HCPCS: 80048 ==

== ENCOUNTER 2025-01-02 10:37 | Outpatient (CLI) | payer MEDICARE, BC, SELFPAY | END 2025-01-02 10:38 | disposition home or self-care (01) | LOC: NFLDREF 01-05 18:40 | PROVIDERS: PCP Family Medicine; Referring Provider Family Medicine; Visit Provider Family Medicine | DX: I10 Essential (primary) hypertension (principal); E03.9 Hypothyroidism, unspecified; E78.5 Hyperlipidemia, unspecified; Z12.5 Encounter for screening for malignant neoplasm of prostate; E55.9 Vitamin D deficiency, unspecified; G25.81 Restless legs syndrome | CPT/HCPCS: 80053; 84443; G0103 ==

== ENCOUNTER 2025-01-21 10:50 | Outpatient (CLI) | payer MEDICARE, BC, SELFPAY | END 2025-01-21 10:51 | disposition home or self-care (01) | PROVIDERS: PCP Family Medicine; Visit Provider Family Medicine | DX: I10 Essential (primary) hypertension (principal); E55.9 Vitamin D deficiency, unspecified | CPT/HCPCS: 80048; 82306 ==

== ENCOUNTER 2025-02-04 09:45 | Outpatient (CLI) | payer MEDICARE, BC, SELFPAY | END 2025-02-04 09:46 | disposition home or self-care (01) | LOC: NFLDREF 02-05 15:26 | PROVIDERS: PCP Family Medicine; Referring Provider Family Medicine; Visit Provider Family Medicine | DX: I10 Essential (primary) hypertension (principal) | CPT/HCPCS: 80048 ==

== ENCOUNTER 2025-02-19 09:56 | Outpatient (CLI) | payer MEDICARE, BC, SELFPAY ==
--- NOTE | 2025-02-19 10:15 | CRLHL7_ITS ---
For Patients: As a result of the Century Cures Act, medical imaging exams and procedure reports are released immediately into your electronic medical record. You may view this report before your referring provider. If you have questions, please contact your health care provider. INDICATION: Intracranial mass, status post excision. TECHNIQUE: Multisequence multiplanar MRI of the brain prior to and following administration of 26 cc Dotarem gadolinium-based intravenous contrast. COMPARISON: MRI brain dated 11/13/2024. FINDINGS: Operative changes of left frontotemporal craniotomy for underlying dural-based mass resection. Mild dural thickening underlying the craniotomy. A 16 mm T1 hyperintense fluid collection is noted at the anterior temporal convexity. Decreased similar T2/FLAIR hyperintensity within the left frontal and temporal lobes adjacent to the resection cavity. Few scattered foci of T2 prolongation elsewhere within the supratentorial white matter typical of chronic small vessel ischemic changes. No evidence of acute ischemia. The ventricles are unchanged in size. There is similar mild diffuse parenchymal volume loss. Flow voids of the larger intracranial arteries are preserved. No discrete infiltrative calvarial lesion. Symmetric globes. Mild diffuse paranasal sinus mucosal thickening. IMPRESSION: 1. Operative changes of left frontotemporal craniotomy for underlying dural-based mass resection. 2. No evidence of recurrent or residual disease. 3. Linear dural thickening and enhancement underlying the craniotomy which is likely postsurgical in etiology. 4. A 16 mm T1 hyperintense fluid collection at the left anterior temporal convexity is decreased in size and likely represents postsurgical subacute blood products. Dictated by Mynor Sharp MD @ 02/20/2025 3:41:07 PM (Electronically Signed)
== END 2025-02-19 09:57 | disposition home or self-care (01) ==
LOC: MRI 09:57
PROVIDERS: PCP Family Medicine; Visit Provider Physician Assistant
DX: Z98.890 Other specified postprocedural states (principal); Z86.03 Personal history of neoplasm of uncertain behavior
CPT/HCPCS: 70553; A9575